=== PATIENT | female | born 1990 | race Caucasian/White ===

== ENCOUNTER 2019-08-20 12:20 | Outpatient (CLI) | payer BC, SELFPAY ==
--- NOTE | ~2019-08-20 | XR_ITS ---
EXAMINATION:XR cervical spine 4-5V DATE: 08/20/2019 12:41 INDICATION: Neck pain TECHNIQUE: AP, lateral, lateral swimmers and odontoid views of the cervical spine are provided. COMPARISON: None FINDINGS: There is straightening of the cervical spine which can be positional or due to muscular spa sm. The odontoid is intact. No fracture is identified. Vertebral body heights and disk spaces are nor mal. Prevertebral soft tissues are normal. IMPRESSION: 1. Cervical spine straightening which may be positional or due to muscular spasm. No acute abnormalit y. Reviewed, dictated and finalized at location A. NS PICKER IMPRESSION: 1. Cervical spine straightening which may be positional or due to muscular spas m. No acute abnormality.
== END 2019-08-20 12:21 | disposition home or self-care (01) ==
PROVIDERS: PCP Physician Assistant; Visit Provider Physician Assistant
DX: M54.2 Cervicalgia (principal)
CPT/HCPCS: 72050

== ENCOUNTER 2020-03-03 12:56 | Emergency (ER) | payer OTHER, SELFPAY ==
[2020-03-03 13:06] VITALS: BP 119/87; PULSE 82; RESP 16; TEMP 37.2; O2SAT 99
[2020-03-03 13:19] LABS: Basophils Percent Auto 0.5 % (0.2-1.2); Eosinophils Absolute Auto 0.1 K/mm3 (0-0.3); Eosinophils Percent Auto 1.5 % (0-4.4); Hematocrit 37.8 % (37.0-47.0); Hemoglobin 13.1 g/dL (12.0-15.0); Immature Granulocyte Absolute 0.02 K/mm3 (0.00-0.031); Immature Granulocyte Percent A 0.3 % (0-0.5); Lymphocytes Absolute Auto 2.23 K/mm3 (0.9-3.2); Mean Corpuscular HGB Conc 34.7 g/dl (32-36); Mean Corpuscular Hemoglobin 30.3 pg (26-34); Mean Corpuscular Volume 87.5 fl (80-100); Mean Platelet Volume 9.8 fl (7.4-10.4); Monocytes Absolute Auto 0.7 K/mm3 (0.1-0.6); Monocytes Percent Auto 8.2 % (2.6-8.5); Neutrophils Absolute Auto 4.9 K/mm3 (1.3-6.7); Neutrophils Percent Auto 61.5 % (45.5-73.1); Platelet Count Result 239 k/mm3 (150-375); Red Blood Count 4.32 M/mm3 (4.2-5.4); Red Cell Distribution Width 11.8 % (11.5-14.5)
[2020-03-03 13:52] LABS: Beta HCG Quantitative > 15000.00 mIU/ML
--- NOTE | 2020-03-03 13:55 | ED.PREGNANCY ---
HPI - General Chief complaint: BELL VALET Stated complaint: , bleeding Time Seen by Provider: 03/03/20 13:41 History of Present Illness HPI Narrative: 29-year-old female presents emergency department for vaginal spotting that she noticed today. Patient states he is about 7 weeks , last menstrual period January 15 or . She states she has not noticed this in the past before during this . She has not seen an [facility] physician just yet. She has appointment scheduled for March 19. No abdominal cramping. No nausea or vomiting. No chest pain or shortness of breath. Related Data Allergies Allergy/AdvReac Type Severity Reaction Status Date / Time No Known Allergies Allergy Verified 03/03/20 13:45 Review of Systems Review of Systems: Narrative: CONSTITUTIONAL: Denies fever, chills, or sweats. EYES: Denies visual changes, redness, or discharge. ENT: Denies rhinorrhea, congestion, sore throat, or otalgia. CARDIOVASCULAR: Denies chest pain, palpitations, or edema. RESPIRATORY: Denies cough or dyspnea. GASTROINTESTINAL: Denies abdominal pain, nausea, vomiting, or diarrhea. GENITOURINARY: Denies dysuria or hematuria. Patient reports vaginal spotting SKIN: Denies rash or itching. MUSCULOSKELETAL: Denies back pain, joint pain, or myalgia. NEUROLOGIC: Denies headache, numbness, dizziness, or weakness. PSYCHIATRIC: Denies anxiety or depression. [facility] Social History Social History Smoking status: Never smoker Second hand tobacco smoke exposure: No Alcohol intake: current Substance use: never Substance use type: marijuana Exam Narrative: Exam Narrative: GENERAL: Well-appearing, well-nourished, and in no acute distress. HEAD: Normocephalic, atraumatic. EYES: PERRLA and EOMI. ENT: Nares clear, no rhinorrhea or epistaxis. Mucous membranes moist. NECK: Supple. CHEST: Clear to auscultation. No respiratory distress. HEART: Regular rate and rhythm. No murmur heard. Normal peripheral pulses. : Dark blood noted in vaginal vault, no active bleeding. ABDOMEN: Soft, nontender, nondistended, normal active bowel sounds. EXTREMITIES: Normal range of motion. No edema. SKIN: Warm, dry, no rash. NEURO: No focal deficits. Alert and oriented x3. PSYCH: Normal mood and affect. Course Vital Signs Vital signs: Vital Signs Temperature 37.2 C 03/03/20 13:06 Pulse Rate 82 03/03/20 13:06 Respiratory Rate 16 03/03/20 13:06 Blood Pressure 119/87 03/03/20 13:06 Pulse Oximetry 99 03/03/20 13:06 Temperature 37.2 C 03/03/20 13:06 Pulse Rate 99 03/03/20 14:54 Respiratory Rate 16 03/03/20 13:06 Blood Pressure 112/75 03/03/20 14:54 Pulse Oximetry 99 03/03/20 13:06 Procedures Other Procedure Procedure 1: Other Procedure: Bedside ultrasound shows IUP with heart rate present. MDM - OB/Uterine Contractions MDM Narrative Medical decision making narrative: 1547 -at this time, I see no indication for a vaginitis, low suspicion for STI at this time. Patient states she has an appointment with her [facility] on March 19. Counseled patient to keep this appointment, and return to emergency department at anytime if she notes increased bleeding, discharge, or other concerns. Medical Records Attestation: I reviewed the patient's medical records. Lab Data Attestation: I reviewed the patient's lab results. Result diagrams: 03/03/20 13:10 03/03/20 13:10 Labs: Lab Results 03/03/20 03/03/20 03/03/20 Range/Units 13:10 13:10 13:10 WBC 8.0 (4.5-10.0) K/mm3 RBC 4.32 (4.2-5.4) M/mm3 Hgb 13.1 (12.0-15.0) g/dL Hct 37.8 (37.0-47.0) % MCV 87.5 (80-100) fl MCH 30.3 (26-34) pg MCHC 34.7 (32-36) g/dl RDW 11.8 (11.5-14.5) % Plt Count 239 (150-375) k/mm3 MPV 9.8 (7.4-10.4) fl Immature Gran % (Auto) 0.3 (0-0.5) % Neut % (Auto) 61.5 (45.5-73.1)
[2020-03-03 14:33] LABS: Anion Gap 8 mmol/L (8-16); Blood Urea Nitrogen 9 mg/dL (7-17); Calcium 9.1 mg/dL (8.4-10.2); Carbon Dioxide 23 mmol/L (22-30); Chloride 104 mmol/L (98-107); Estimated CRCL calculation 110 ml/min; Estimated Glomerular Filt Rate > 60; Glucose 147 mg/dL (65-105); Potassium 3.7 mmol/L (3.4-5.0); Sodium 135 mmol/L (137-145)
[2020-03-03 14:53] VITALS: BP 109/54; PULSE 86
[2020-03-03 14:54] VITALS: BP 109/61; BP 112/75; PULSE 99
== END 2020-03-03 16:05 | disposition home or self-care (01) ==
PROVIDERS: General Practice; Emergency Provider Emergency Medicine; PCP Physician Assistant
DX: O20.9 Hemorrhage in early pregnancy, unspecified (principal); Z3A.11 11 weeks gestation of pregnancy
CPT/HCPCS: 36415; 80048; 84702; 85025; 85461; 87070; 87491; 87591; 87808; 99284

== ENCOUNTER 2020-08-05 08:04 | Outpatient (CLI) | payer OTHER, SELFPAY ==
[2020-08-05 08:59] LABS: Glucose Fasting Gestational 81 mg/dL (>/=95)
[2020-08-05 10:37] LABS: Glucose 1 Hour Gest 164 mg/dL (>/=180)
[2020-08-05 11:35] LABS: Glucose 2 Hour Gest 143 mg/dL (>/= 155)
[2020-08-05 12:37] LABS: Glucose 3 Hour Gest 55 mg/dL (>/=140)
== END 2020-08-05 08:05 | disposition home or self-care (01) ==
PROVIDERS: PCP Physician Assistant; Visit Provider Obstetrics & Gynecology
DX: O99.810 Abnormal glucose complicating pregnancy (principal); Z3A.00 Weeks of gestation of pregnancy not specified
CPT/HCPCS: 36415; 82951; 82952

== ENCOUNTER 2020-10-12 20:22 | Observation (INO) | payer OTHER, SELFPAY ==
[2020-10-12 20:40] VITALS: BMI 27.3
--- NOTE | 2020-10-13 07:52 | OBADM ---
This patient, Estela Smith, admitted to the OB room Labor/Delivery/Recovery 105 for observation. Patient/family oriented to hospital policies and general routines including ID bracelet, bed and alarms, visiting hours, pain management, procedures, bathroom and other care routines, personal items, smoking policy, room service/diet, and visiting hours. Patient/Family are encouraged to report perceived risks to care and to ask questions if they do not understand what they are told or what they should do.
--- NOTE | 2020-10-13 07:53 | PC.NURSE ---
Addendum entered by Crescencio Stiles RN 10/13/20 07:56: TIME NOTE 10-12-20 at 2335 Original Note: Pt arrived having contractions. Pt had not cervical change after [address] Azevedo. Will discharge home with instuctions to return when contractions increase in intensity of if SROM. Pt advised and agreeable. Pt comfortable with returning home and returning when contractions intensity.
--- NOTE | 2020-10-16 08:43 | PM.OBTRLD ---
OB - Triage/Final Diagnosis Visit Information Comments/Additional reasons for admission: I have assessed the risk for this patient, Estela Smith, and determined that she would benefit from observation care. Final Diagnosis (1) , delivered: Code(s): O80 - Encounter for full-term uncomplicated delivery Status: Acute
== END 2020-10-12 23:35 | disposition home or self-care (01) ==
PROVIDERS: Admitting Provider Obstetrics & Gynecology; PCP Physician Assistant; Visit Provider Obstetrics & Gynecology
DX: O60.00 Preterm labor without delivery, unspecified trimester (principal); Z3A.00 Weeks of gestation of pregnancy not specified
CPT/HCPCS: G0378; G0379

== ENCOUNTER 2020-10-13 02:01 | Inpatient (IN) | payer OTHER, SELFPAY ==
[2020-10-13] VITALS (47 sets, daily range): BP systolic 96–193; BP diastolic 47–160; PULSE 65–132; RESP 16–18; TEMP 36.3–37.2; O2SAT 95–100; BMI 27.3
--- NOTE | 2020-10-13 02:01 | PC.NURSE ---
This patient, Estela Smith, was admitted to Labor/Delivery/Recovery 105 on 10/13/20 at 02:01. Plans for labor, pain management and were discussed with patient. Patient/family oriented to hospital policies and general routines including ID bracelet, bed and alarms, visiting hours, pain management, procedures, bathroom and other care routines, personal items, smoking policy, room service/diet and guest tray routines, infant security routines, and visiting hours. Patient/Family are encouraged to report perceived risks to care and to ask questions if they do not understand what they are told or what they should do. See OBIX for further documentation.
[2020-10-13] MEDS: LACTATED RINGERS 1,000 ML 125 ML IV CONT ×2 (02:10→02:55)
[2020-10-13 02:25] LABS: Basophils Absolute Auto 0.1 K/mm3 (0.0-0.1); Basophils Percent Auto 0.3 % (0.2-1.2); Eosinophils Absolute Auto 0.1 K/mm3 (0-0.3); Eosinophils Percent Auto 0.3 % (0-4.4); Hematocrit 34.2 % (37.0-47.0); Hemoglobin 11.4 g/dL (12.0-15.0); Immature Granulocyte Absolute 0.13 K/mm3 (0.00-0.031); Immature Granulocyte Percent A 0.7 % (0-0.5); Lymphocytes Absolute Auto 2.62 K/mm3 (0.9-3.2); Lymphocytes Percent Auto 13.6 % (18.3-44.2); Mean Corpuscular HGB Conc 33.3 g/dl (32-36); Mean Corpuscular Hemoglobin 27.1 pg (26-34); Mean Corpuscular Volume 81.4 fl (80-100); Mean Platelet Volume 10.1 fl (7.4-10.4); Monocytes Absolute Auto 1.3 K/mm3 (0.1-0.6); Monocytes Percent Auto 6.9 % (2.6-8.5); Neutrophils Percent Auto 78.2 % (45.5-73.1); Platelet Count Result 212 k/mm3 (150-375); Red Cell Distribution Width 13.8 % (11.5-14.5); White Blood Count 19.2 K/mm3 (4.5-10.0)
--- NOTE | 2020-10-13 02:32 | P.PNAN_ITS ---
Anes - Eval Pre Procedure Procedure: labor epidural Date/Time: 10/13/20 02:32 Surgeon: suzie Preop Diagnosis: Abd pain with contractions Pre Op Diagnosis: CTX Patient Data Age: 30 Gender: F Height: Weight: Allergies Allergy/AdvReac Type Severity Reaction Status Date / Time No Known Allergies Allergy Verified 06/10/20 09:08 Home Medications Medication Instructions Recorded Confirmed Type PNV cmb#95-ferrous fumarate-FA 1 tablet PO DAILY 09/23/20 09/23/20 History [] ferrous sulfate [Iron (ferrous 325 mg PO DAILY 09/23/20 09/23/20 History sulfate)] omeprazole 20 mg PO DAILY 09/23/20 09/23/20 History Laboratory Tests 10/13/20 10/13/20 02:18 02:18 WBC 19.2 K/mm3 H K/mm3 (4.5-10.0) RBC 4.20 M/mm3 M/mm3 (4.2-5.4) Hgb 11.4 g/dL L g/dL (12.0-15.0) Hct 34.2 % L % (37.0-47.0) MCV 81.4 fl fl (80-100) MCH 27.1 pg pg (26-34) MCHC 33.3 g/dl g/dl (32-36) RDW 13.8 % % (11.5-14.5) Plt Count 212 k/mm3 k/mm3 (150-375) MPV 10.1 fl fl (7.4-10.4) Immature Gran % (Auto) 0.7 % H % (0-0.5) Neut % (Auto) 78.2 % H % (45.5-73.1) Lymph % (Auto) 13.6 % L % (18.3-44.2) [place] % (Auto) 6.9 % % (2.6-8.5) Eos % (Auto) 0.3 % % (0-4.4) Baso % (Auto) 0.3 % % (0.2-1.2) Lymph # (Auto) 2.62 K/mm3 K/mm3 (0.9-3.2) [place] # (Auto) 1.3 K/mm3 H K/mm3 (0.1-0.6) Eos # (Auto) 0.1 K/mm3 K/mm3 (0-0.3) Baso # (Auto) 0.1 K/mm3 K/mm3 (0.0-0.1) Abs Immat Gran (auto) 0.13 K/mm3 H K/mm3 (0.00-0.031) Absolute Neuts (auto) 15.0 K/mm3 H K/mm3 (1.3-6.7) Absolute Nucleated RBC 0.0 K/mm3 K/mm3 (0.0-0.012) Nucleated RBC % 0.0 % % (0.0-0.2) RPR Pending Patient hx anesthesia problems: none Family hx anesthesia problems: none [facility] Past Medical History Medical History Chronic pain Family History Family History Mother Patient's mother is in good health Father Patient's father is in good health Sibling Patient's brother is in good health Social History Social History Smoking status: Never smoker Second hand tobacco smoke exposure: No Alcohol intake: current Substance use: never Substance use type: marijuana Gender identity (if verbalized by the patient): Female Spiritual care concerns: No Exam Day of Procedure 10/13/20 02:32
--- NOTE | 2020-10-13 02:35 | P.PNAN_ITS ---
Anes - Eval Pre Procedure Date/Time: 10/13/20 02:35 Pre Op Diagnosis: CTX Patient Data Age: 30 Gender: F Height: Weight: Last Vital Signs Pulse 98 10/13/20 02:34 BP 123/79 10/13/20 02:34 Pulse Ox 100 10/13/20 02:34 Allergies Allergy/AdvReac Type Severity Reaction Status Date / Time No Known Allergies Allergy Verified 06/10/20 09:08 Home Medications Medication Instructions Recorded Confirmed Type PNV cmb#95-ferrous fumarate-FA 1 tablet PO DAILY 09/23/20 09/23/20 History [] ferrous sulfate [Iron (ferrous 325 mg PO DAILY 09/23/20 09/23/20 History sulfate)] omeprazole 20 mg PO DAILY 09/23/20 09/23/20 History Laboratory Tests 10/13/20 10/13/20 02:18 02:18 WBC 19.2 K/mm3 H K/mm3 (4.5-10.0) RBC 4.20 M/mm3 M/mm3 (4.2-5.4) Hgb 11.4 g/dL L g/dL (12.0-15.0) Hct 34.2 % L % (37.0-47.0) MCV 81.4 fl fl (80-100) MCH 27.1 pg pg (26-34) MCHC 33.3 g/dl g/dl (32-36) RDW 13.8 % % (11.5-14.5) Plt Count 212 k/mm3 k/mm3 (150-375) MPV 10.1 fl fl (7.4-10.4) Immature Gran % (Auto) 0.7 % H % (0-0.5) Neut % (Auto) 78.2 % H % (45.5-73.1) Lymph % (Auto) 13.6 % L % (18.3-44.2) [place] % (Auto) 6.9 % % (2.6-8.5) Eos % (Auto) 0.3 % % (0-4.4) Baso % (Auto) 0.3 % % (0.2-1.2) Lymph # (Auto) 2.62 K/mm3 K/mm3 (0.9-3.2) [place] # (Auto) 1.3 K/mm3 H K/mm3 (0.1-0.6) Eos # (Auto) 0.1 K/mm3 K/mm3 (0-0.3) Baso # (Auto) 0.1 K/mm3 K/mm3 (0.0-0.1) Abs Immat Gran (auto) 0.13 K/mm3 H K/mm3 (0.00-0.031) Absolute Neuts (auto) 15.0 K/mm3 H K/mm3 (1.3-6.7) Absolute Nucleated RBC 0.0 K/mm3 K/mm3 (0.0-0.012) Nucleated RBC % 0.0 % % (0.0-0.2) RPR Pending Patient hx anesthesia problems: none Family hx anesthesia problems: none PMFSH Past Medical History Medical History Chronic pain Family History Family History Mother Patient's mother is in good health Father Patient's father is in good health Sibling Patient's brother is in good health Social History Social History Smoking status: Never smoker Second hand tobacco smoke exposure: No Alcohol intake: current Substance use: never Substance use type: marijuana Gender identity (if verbalized by the patient): Female Spiritual care concerns: No Exam Day of Procedure 10/13/20 02:35 Patient weight: normal Neurological: alert and oriented
--- NOTE | 2020-10-13 03:08 | WPDOBADMIT ---
Obstetrics - Admit Note Admission Note: record reviewed. No pertinent additions to the history and/or any subsequent changes in the physical findings that are not consistent with the expected course of the were found. Additions to the history and/or subsequent changes in the physical findings follow. AROM clear at [id number] 8//-1 FHT reassuring with accels anticipate
[2020-10-13] MEDS: OXYTOCIN 30 UNITS/NS 500 ML 30 UNITS/500 ML BAG 999 UNITS IV CONT (04:28)
--- NOTE | 2020-10-13 04:39 | PM.OBPRVD ---
OB - Delivery Note Procedure Delivery date: 10/13/20 Procedure: Induction method: none Delivery augmentation: rupture of membranes Delivery monitor: external FHT and external uterine Route of delivery: Laceration Description: None Specimen: Yes (cord blood) Quantitative Blood Loss (ml): 400 Anesthesia type: Epidural Disposition: floor Complications: none Narrative: With adequate expulsive efforts by the mother, the baby's head was delivered OA. The baby's anterior shoulder was delivered under the pubic symphysis without difficulty. The posterior shoulder and the rest of the baby delivered without difficulty. The was placed on the mothers chest and suctioned and stimulated. The cord was clamped and cut after 30 seconds. Mother and baby both stable. Baby Date of : 10/13/20 Weeks of gestation at delivery: 38 Infant gender: Male Weight (pounds): 9 Weight (ounces): 3 presentation: vertex position: Right Occiput Anterior Placenta delivery description: Spontaneous cord vessel description: 3 Vessels score one minute: 9 score five minutes: 9
[2020-10-13] MEDS: OXYTOCIN 30 UNITS/NS 500 ML 30 UNITS/500 ML BAG 125 UNITS IV CONT (05:00)
--- NOTE | 2020-10-13 07:26 | PC.NURSE ---
Patient transferred to post room #280 via [id number]. Support person present. Oriented to unit, room, information board, rooming in, admission packet and security measures. Patient verbalizes understanding.
--- NOTE | 2020-10-13 08:45 | PC.NURSE ---
Consulted with patient, mother reports infant eagerly fed for first feeding with slight tenderness. Reviewed infant feeding cues, frequencies, duration of feedings, feeding elimination flow sheet, and signs of adequate intake. Demonstrated stimulation techniques to wake infant for feeding. Assisted with infant to breast. Reviewed positioning/alignment in cross cradle, holding breast in U hold and guided asymmetrical latch on. was able to latch correctly with first attempt. Infant nursed eagerly, with steady draws and frequent swallowing noted. Reviewed signs of a correct latch, effective nursing and suck swallow ratio. was able to maintain latch without discomfort to mother. Nipple care reviewed. slipped to shallow latch while feeding. Demonstrated how to adjust latch more deeply while feeding ,mother quickly reports she can feel infant is latched more deeply and has minimal tenderness. Suggested to stimulate infant while feeding to keep infant awake and nursing effectively for increased stimulation and increased intake. Instructed mother to call out for RN assistance if she is unable to latch infant for feeding or she has discomfort with nursing. Instructed mother to call out for RN assistance if she is unable to latch infant for feeding or she has discomfort with nursing. Instructed feeding should be initiated three hours from start of last feeding or if feeding cues are noted before. Mother voiced understanding of information shared.
[2020-10-13] MEDS: MULTIVIT/MIN/PREN/FOL AC/IRON TABLET 1 TAB PO (09:29)
[2020-10-13] MEDS: IBUPROFEN 600 MG TABLET PO ×2 (09:29→17:24)
[2020-10-13 12:00] LABS: Rapid Plasma Reagin Non-Reactive (NonReactive)
--- NOTE | 2020-10-13 12:36 | PCCCNOTE ---
Received referral for marijuana use during . Met with pt. and her best friend, Jennifer at bedside. Pt. confirms same; indicating that she's used marijuana in the past due to fibromyalgia and during for nausea. No urine drug screen ordered. Baby urine drug screen is pending. Pt. indicates having no previous history with DCFS. She states living with her grandparents and her 10 year old. Father of baby is not involved. Pt. states no concerns regarding this situation. She states having much support and all needed items to care for baby at discharge. She is current with [facility]. Nursing indicates no other concerns. No indication at this time to make a DCFS report regarding situation. Will follow for babies urine drug screen results. Offered pt. additional resources and she accepted same.
--- NOTE | 2020-10-13 14:30 | PC.NURSE ---
RN requested consult with pt., mother is not calling out for BS as requested, tracking feedings and allowing to have short 5 minute feedings. Consult with pt., upon entering infant at breast with deep latch, nursing eagerly with long rhythmical draws with swallowing noted. Suggested to stimulate infant while feeding to keep infant awake and nursing effectively for increased stimulation and increased intake. Instructed mother to call out for RN assistance if she is unable to latch infant for feeding or she has discomfort with nursing. Reviewed should nurse approximately 15 minutes per feeding needing constant stimulation to keep nursing, it is normal for newborns to be at breast 30 minutes for 15 minutes of nursing. will be sleepy at first and more awake and eager to feed within a few days.
[2020-10-14 03:50] VITALS: BP 106/59; PULSE 81; RESP 18; TEMP 36.6; O2SAT 100
[2020-10-14] MEDS: IBUPROFEN 600 MG TABLET PO (04:39)
[2020-10-14 05:41] LABS: Hematocrit 31.1 % (37.0-47.0)
--- NOTE | 2020-10-14 07:41 | WPDANLDPN2 ---
Anes-Prog Note L&D Date/Time: 10/14/20 07:41 Comfortable throughout: labor and delivery Neuraxial method: epidural Epidural/Spinal procedure site: clean & non-tender Neuro status: Neuro function grossly intact. Cardiovascular status: normal Respiratory status: normal Airway patency: baseline Mental status: baseline Post-Op hydration status: normal Vital Signs: Last Vital Signs Temp 36.6 C 10/14/20 03:50 Pulse 81 10/14/20 03:50 Resp 18 10/14/20 03:50 BP 106/59 L 10/14/20 03:50 Pulse Ox 100 10/14/20 03:50 Pain score (VAS): 3 Post-procedural complaints: none Patient feedback: Patient satisfied with anesthetic care.
[2020-10-14 07:55] VITALS: BP 115/74; PULSE 76; RESP 16; TEMP 37.1; O2SAT 99
--- NOTE | 2020-10-14 08:05 | PM.OBPNVD ---
OB - PN: Subj Subjective Date/time seen: 10/14/20 08:05 Patient comments: no complaints baby status: doing well OB - PN: Obj Data Labs CBC & Chem 7: 10/14/20 04:20 Labs: Laboratory Results - last 24 hr 10/13/20 10/14/20 02:18 04:20 Hgb 10.0 L Hct 31.1 L RPR Non-reactive OB - PN A/P Plan day: 1 Plan: routine care and discharge home (RTC 4 weeks) Time Spent With Patient Time: Total time spent is greater than 50% in coordination of care (as documented) at patient's floor/unit and/or counseling patient: Time with patient: less than 15 minutes Review of Systems Review of Systems: All systems reviewed & are unremarkable except as noted in HPI and below Exam Narrative: Exam Narrative: Fundus firm and vaginal flow controlled. No lower ext redness, warmth, or edema. Negative homans. Const: General: comfortable Chest: Breast/axilla inspection: normal inspection of the breasts Resp: Effort & Inspection: normal respiratory effort Cardio: Rate: regular rate GI: GI Palp: Yes Soft to palpation Psych: Appearance: grossly normal Affect: normal affect Attitude: cooperative Thought content: Yes Normal thought content present Judgement: Good judgement present (Psych)
--- NOTE | 2020-10-14 08:11 | PM.OBDSVD ---
OB - DS: Summary Time Spent with Patient Time attestation: Total time spent providing and/or coordinating discharge services: DS: Data Data Completed and Pending Labs on day of discharge: Labs from last 24 hours 10/14/20 10/13/20 04:20 02:18 Hgb 10.0 L Hct 31.1 L RPR Non-reactive Discharge Plan Discharge Attending physician on discharge: Emily Azevedo Consulting providers: Lisa Thomason Discharging Clinician: Lisa Thomason Patient Disposition: Home, Self-Care Activity: pelvic rest Diet: as tolerated Discharge Instructions: Education: Mom and Baby Guide and Preeclampsia Handout Given to: Mother Follow-Up: Call your delivering provider's office for an appointment to be seen in: 6 Weeks Mom and baby should come to the [facility] for the follow-up appointment. Appointment Date/Time: October 15, 2020 at 8:00 am What to expect at your follow-up visit: Physical Assessment Call [phone] if you are unable to keep your appointment time. BREAST CARE: * Wear a snug supportive bra. * For engorgement discomfort: Breast Feeding: * Apply warm moist washcloths * Express milk as needed to relieve engorgement * Wear loose clothing * For sore nipples: * Identify correct latch-on * Apply warm moist washcloths before and after nursing * Air dry nipples after nursing * May apply Lansinoh cream to nipples EPISIOTOMY/PERINEAL CARE: * Until bleeding stops, use your sudha bottle after urinating * Change your pad frequently throughout the day * You may take sitz baths several times a day (fill your bathtub with warm water and soak for 20 minutes.) Do NOT bathe in the water * No tub baths until seen by your physician - You may shower ACTIVITY: * Rest as much as possible. * Do not exercise or lift anything heavier than your baby (such as laundry or other children.) * Avoid stairs or driving as much as possible. * Do not put anything into the vagina. No douching, tampons, or sexual activity until seen by physician. NOTIFY PHYSICIAN IF YOU HAVE ANY QUESTIONS OR IF ANY OF THE FOLLOWING SYMPTOMS OCCUR: * If your perineum becomes red, swollen, or more painful than what you have experienced in the hospital. * If your vaginal bleeding becomes foul smelling. * If your vaginal bleeding becomes more heavy than a period or if your bleeding changes from pink to bright red. However, you may pass an occasional walnut-sized clot once or twice for the first week . * If you experience a sharp, shooting pain in you calves. * If you discover a hard, reddened area on your breast or if you experience flu-like symptoms. DIET: * Eat regular, well-balanced meals. * Drink plenty of fluids daily. If , drink to thirst. Stand Alone Forms: General Discharge Information Follow-up/Referrals: Emily Azevedo MD [Physician] - Discharge Medications: Continued ferrous sulfate [Iron (ferrous sulfate)] 325 mg (65 mg iron) Tablet 325 mg PO DAILY RF: 0 omeprazole 20 mg Tablet,Delayed Release (Dr/Ec) 20 mg PO DAILY RF: 0 PNV cmb#95-ferrous fumarate-FA [] 28 mg iron- 800 mcg Tablet 1 tablet PO DAILY RF: 0 Date of admission: 10/13/20 02:01 Primary Care Provider: Joesph Nuno Admitting Provider: Emily Azevedo Attending physician on admission: Emily Azevedo Condition: Stable
--- NOTE | 2020-10-14 09:40 | PC.NURSE ---
Patient viewed the discharge video Mother & Baby Care, The First Two Weeks . Patient was given the opportunity and encouraged to ask questions. Patient verbalized understanding of information shared and has been given the mother/baby guide for home reference.
[2020-10-14] MEDS: MULTIVIT/MIN/PREN/FOL AC/IRON TABLET 1 TAB PO (09:41)
[2020-10-14] MEDS: TETANUS,DIPHTHERIA,AC PERTUSSIS ADULT (0.5 ML) BOOSTRIX IM (09:41)
[2020-10-14] MEDS: ACETAMINOPHEN 325 MG TABLET 650 MG PO (09:44)
[2020-10-15 08:16] VITALS: BP 110/63; PULSE 78; RESP 20; TEMP 36.8; O2SAT 100
--- NOTE | 2020-11-05 07:46 | PM.DS ---
DS: Admitting Diagnosis Admitting Diagnosis Admitting Diagnosis: term DS: Discharge Diagnosis Discharge Diagnosis (1) , delivered: Code(s): O80 - Encounter for full-term uncomplicated delivery Status: Acute DS: Summary Hospital Course Hospital Course: course was uncomplicated. Time Spent with Patient Time attestation: Total time spent providing and/or coordinating discharge services: Exam Narrative: Exam Narrative: NAD abdomen soft, appropriately tender Ext non tender, 1+ edema Discharge Plan Discharge Attending physician on discharge: Emily Azevedo Consulting providers: Lisa Thomason Discharging Clinician: Lisa Thomason Patient Disposition: Home, Self-Care Activity: pelvic rest Diet: as tolerated Discharge Instructions: Education: Mom and Baby Guide and Preeclampsia Handout Given to: Mother Follow-Up: Call your delivering provider's office for an appointment to be seen in: 6 Weeks Mom and baby should come to the [facility] for the follow-up appointment. Appointment Date/Time: October 15, 2020 at 8:00 am What to expect at your follow-up visit: Physical Assessment Call [phone] if you are unable to keep your appointment time. BREAST CARE: * Wear a snug supportive bra. * For engorgement discomfort: Breast Feeding: * Apply warm moist washcloths * Express milk as needed to relieve engorgement * Wear loose clothing * For sore nipples: * Identify correct latch-on * Apply warm moist washcloths before and after nursing * Air dry nipples after nursing * May apply Lansinoh cream to nipples EPISIOTOMY/PERINEAL CARE: * Until bleeding stops, use your sudha bottle after urinating * Change your pad frequently throughout the day * You may take sitz baths several times a day (fill your bathtub with warm water and soak for 20 minutes.) Do NOT bathe in the water * No tub baths until seen by your physician - You may shower ACTIVITY: * Rest as much as possible. * Do not exercise or lift anything heavier than your baby (such as laundry or other children.) * Avoid stairs or driving as much as possible. * Do not put anything into the vagina. No douching, tampons, or sexual activity until seen by physician. NOTIFY PHYSICIAN IF YOU HAVE ANY QUESTIONS OR IF ANY OF THE FOLLOWING SYMPTOMS OCCUR: * If your perineum becomes red, swollen, or more painful than what you have experienced in the hospital. * If your vaginal bleeding becomes foul smelling. * If your vaginal bleeding becomes more heavy than a period or if your bleeding changes from pink to bright red. However, you may pass an occasional walnut-sized clot once or twice for the first week . * If you experience a sharp, shooting pain in you calves. * If you discover a hard, reddened area on your breast or if you experience flu-like symptoms. DIET: * Eat regular, well-balanced meals. * Drink plenty of fluids daily. If , drink to thirst. Stand Alone Forms: General Discharge Information Follow-up/Referrals: Emily Azevedo MD [Physician] - Discharge Medications: Continued ferrous sulfate [Iron (ferrous sulfate)] 325 mg (65 mg iron) Tablet 325 mg PO DAILY RF: 0 omeprazole 20 mg Tablet,Delayed Release (Dr/Ec) 20 mg PO DAILY RF: 0 PNV cmb#95-ferrous fumarate-FA [] 28 mg iron- 800 mcg Tablet 1 tablet PO DAILY RF: 0 Date of admission: 10/13/20 02:01 Primary Care Provider: Joesph Nuno Admitting Provider: Emily Azevedo Attending physician on admission: Emily Azevedo Condition: Stable
== END 2020-10-14 11:40 | disposition home or self-care (01) | DRG 560 ==
LOC: ANHLDR 02:22 → ANHOB2 10-14 08:13 → ANHLDR 10-15 12:31 → ANHOB2 10-15 12:31
PROVIDERS: Admitting Provider Obstetrics & Gynecology; PCP Physician Assistant; Visit Provider Obstetrics & Gynecology
DX: O80 Encounter for full-term uncomplicated delivery (principal); Z3A.38 38 weeks gestation of pregnancy; Z37.0 Single live birth
CPT/HCPCS: 36415; 85014; 85018; 85025; 86592; 86850; 86900; 86901; 90715; A9270; J2590; J2795; J7120

== ENCOUNTER 2024-06-07 11:38 | Emergency (ER) | payer OTHER, SELFPAY ==
--- NOTE | ~2024-06-07 | XR_ITS ---
EXAMINATION: XR chest 2V Exam Date/Time: 06/07/2024 14:09 CATCHER HELPER HISTORY: Cough,BODY ACHES, and fever X 4 DAYS Comparison: None. RESULT: Lines, tubes, and devices: None. Lungs and pleura: Segmental airspace disease in the superior segment, left lower lobe. Cardiomediastinal silhouette: Stable. Other: No acute osseous or upper abdominal finding. IMPRESSION: Findings suspicious for lower lobe pneumonia. Reviewed, dictated and finalized at location K. HER HELPER
[2024-06-07 11:52] VITALS: BP 108/70; PULSE 107; RESP 14; TEMP 37.2; O2SAT 100
[2024-06-07 12:59] LABS: Strep Group A RT-PCR NOT DETECTED (Negative)
[2024-06-07 13:11] LABS: Influenza A QL RT-PCR Negative (Negative); Influenza B QL RT-PCR Negative (Negative); RSV RNA, RT-PCR Negative (Negative); SARS-CoV-2 RNA PCR Negative (Negative)
--- NOTE | 2024-06-07 14:40 | ED_ITS ---
HPI - URI/Sore Throat General Chief Complaint: Upper Respiratory Infection Stated Complaint: body aches, cold sx's Time Seen by Provider: 06/07/24 13:17 Source: patient Mode of arrival: ambulatory Limitations: no limitations History of Present Illness HPI Narrative: This is a 33-year-old female, with no significant past medical history, presents to the emergency department complaining of cough, body aches and fevers for the last week. She rates her pain 8/10. This is accompanied by cough productive of nonbloody sputum, nasal congestion and sore throat. The patient states despite taking Tylenol and ibuprofen, her symptoms having continued. She states she has frequent measured temperatures of 102 at home. Related Data Allergies Allergy/AdvReac Type Severity Reaction Status Date / Time No Known Allergies Allergy Verified 02/12/24 07:40 Review of Systems Review of Systems: last menstrual period 2 weeks ago All systems reviewed & are unremarkable except as noted in HPI and below PMFSH Past Medical History Medical History Chronic pain Family History Family History Mother Patient's mother is in good health Father Patient's father is in good health Sibling Patient's brother is in good health Social History Social History Smoking status: Never smoker Second hand tobacco smoke exposure: No Alcohol intake: current Substance use: never Substance use type: marijuana Lack of Transportation: No Lack of Food: Never True Current Housing: I Have Housing Concerned About Future Housing: No Difficulty Paying Gas/Electric Bills: No Difficulty Paying for Meds: No Currently Unemployed: No Education: Trade/Vocational Certificate Difficulty w/ Childcare or Family Care: YES Gender identity (if verbalized by the patient): Female Spiritual care concerns: No Exam 2 Narrative: GENERAL: Well-developed, well-nourished, and in no acute distress. HEAD: Normocephalic, atraumatic. EYES: PERRLA and EOMI. ENT: Nares clear, no rhinorrhea or epistaxis. Mucous membranes moist. Oropharynx without tonsillar hypertrophy exudate or other lesions. CHEST: Clear to auscultation. No respiratory distress. No wheezes rales or rhonchi HEART: Regular rate and rhythm. No murmur heard. Normal peripheral pulses. ABDOMEN: Soft, nontender, nondistended, normal active bowel sounds. EXTREMITIES: Normal range of motion. No edema. SKIN: Warm, dry, no rash. NEURO: Alert and oriented x3. No focal deficit. Moving all 4 limbs spontaneously PSYCH: Normal mood and affect. Course Course Emergency Course: 14:40 - The patient tested negative for COVID, influenza, RSV and strep. Chest x-ray however shows changes consistent with left lower lobe pneumonia. Will discharge with azithromycin, Sudafed and recommendation for continued use of Tylenol/ ibuprofen as well as primary care follow-up. I discussed the findings and recommendations with the patient. Discussed return and emergency precautions including signs/symptoms of ACS and respiratory distress. The patient voiced understanding and agreement with the plan. All questions answered to her satisfaction. Vital Signs Vital signs: Vital Signs Temperature 99.0 F 06/07/24 11:52 Pulse Rate 107 H 06/07/24 11:52 Respiratory Rate 14 06/07/24 11:52 Blood Pressure 108/70 06/07/24 11:52 Pulse Oximetry 100 06/07/24 11:52 Oxygen Delivery Room Air 06/07/24 11:52 Temperature 99.0 F 06/07/24 11:52 Pulse Rate 107 H 06/07/24 11:52 Respiratory Rate 14 06/07/24 11:52 Blood Pressure 108/70 06/07/24 11:52 Pulse Oximetry 100 06/07/24 11:52 Oxygen Delivery Room Air 06/07/24 12:30 MDM - URI/Sore Throat MDM Narrative Medical decision making narrative: plan: Labs, pain control, imaging, reassess Differential Diagnosis Differential diagnosis: Likely upper respiratory infection, viral infection, influenza and other ( COVID, RSV, viral pharyngitis, strep pharyngitis, pneumonia, other) Lab Data Labs: Lab Results 06/07/24 Range/Units 12:29 Influenza A (RT-PCR) Negative (Negative) Influenza B (RT-PCR) Negative (Negative) RSV (RT-PCR) Negative (Negative) SARS-CoV-2 RNA (RT-PCR) Negative (Negative) Group A Strep (PCR) Not detected (Negative) Discharge Plan Discharge Clinical Impression: Pneumonia, Myalgia, Tachycardia Patient Disposition: Home, Self-Care Condition: Stable Instructions: Antibiotic Form, Community Acquired Pneumonia (ED) Additional Instructions: You were seen in the emergency department. A chest x-ray showed changes consistent with a pneumonia. I recommend a course of antibiotics and follow up with your primary care doctor. If you develop difficulty breathing, loss of consciousness, or if you have other emergent concerns for life, limb, or eyesight, return to the emergency department. Patient Language: [place] Prescriptions: New azithromycin 250 mg tablet See Rx Instructions .ROUTE .COMPLEX Qty: 6 0RF Rx Instructions: For 250 mg dose pack: take 500 mg today (day 1), then 250 mg for 4 days (days 2-5) pseudoephedrine HCl 60 mg tablet 60 mg PO Q4-6H PRN (Reason: nasal congestion) Qty: 12 0RF Rx Instructions: DNExceed 4 doses/24h No Action tramadol 50 mg tablet 50 mg PO TID PRN (Reason: pain) Qty: 90 0RF Follow-up/Referrals: Grayson Castellon DO [Primary Care Provider] - 2 Weeks Time of Disposition: 14:42
== END 2024-06-07 15:00 | disposition home or self-care (01) ==
PROVIDERS: Emergency Medicine; Emergency Provider Preventive Medicine Aerospace Medicine; PCP Internal Medicine
DX: J18.9 Pneumonia, unspecified organism (principal); M79.10 Myalgia, unspecified site; R00.0 Tachycardia, unspecified; Z20.822 Contact with and (suspected) exposure to COVID-19
CPT/HCPCS: 71046; 87637; 87651; 99283

== ENCOUNTER 2024-11-12 16:39 | Outpatient (CLI) | payer OTHER, SELFPAY ==
--- NOTE | ~2024-11-12 | US_ITS ---
EXAMINATION: US thyroid DATE: 11/12/2024 17:06 INDICATION: Iodine deficiency related diffuse (endemic) goiter TECHNIQUE: Multiple ultrasound images of the thyroid were obtained. COMPARISON: None. FINDINGS: The right thyroid lobe measures 5.5 x 2.2 x 3.2 cm. Within the right lobe of the thyroid gland is a 5.6 x 3.4 x 4.0 mm nodule: Composition -solid or almost completely solid (2) Echogenicity -hyperechoic or isoechoic (1) Shape - wider than tall Margin -ill-defined. Echogenic foci -macrocalcifications = TR 4, moderately suspicious. Greater than or equal to 1 cm, follow-up. Greater than or equal to 1.5 cm, FNA The left thyroid lobe measures 3.8 x 0.8 x 1.2 cm. The isthmus measures 0.3cm in anterior to posterior dimension. There is otherwise normal echotexture and echogenicity throughout the remainder of the thyroid gland. No additional discrete nodules identified. The right lobe of the thyroid gland is hypervascular when compared to the left. IMPRESSION: TR4 nodule within the right lobe of the thyroid gland measuring 5.6 mm in greatest dimension. This nodule is moderately suspicious, but does not meet size criteria for FNA or follow-up. While follow-up is not recommended, it may be performed. Reviewed, dictated and finalized at location A. IMPRESSION: TR4 nodule within the right lobe of the thyroid gland measuring 5.6 mm in great est dimension. This nodule is moderately suspicious, but does not meet size criteria for FNA o r follow-up. While follow-up is not recommended, it may be performed.
--- OUTSIDE RECORDS SUMMARY | 2024-11-12 16:43 | XMS_ITS | Clinical Summary ---
Author Organization [facility] Address [address] [place] [address] Care Team Providers Care Bridge Leverman Name Role Phone Joesph Nuno PA-C Primary Care Provide r Source Comments [facility],non-owned Affiliates and Associated Physician Practices is amultiple site organization consisting of ambulatory clinics and hospital sitesin [place], [place], [place] and [place]. This disclosure is being madepursuant to the Care Everywhere program and may not contain all information available regarding this patient. Last updated 18.[facility] Allergies No known active allergies Medications * Be aware that medications may not be up to date on this document. Alwaysverify current medications with the patient. traMADol (ULTRAM) 50 MG tablet Take 50 mg by mouth every 6 hours as needed for Pain Active busPIRone (BUSPAR) 30 MG tablet Take 30 mg by mouth once daily Active baclofen (LIORESAL) 20 MG tablet Take 20 mg by mouth 2 times daily May cause drowsiness. 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/20/2015 Endometriosis 09/20/2015 Pain in joint involving right pelvic region and thigh 09/20/2015 Dysmenorrhea 09/20/2015 Chronic pelvic pain in female 09/20/2015 Social History Tobacco Use Types Packs/Day Years Used Date Smoking Tobacco: Some Days Cigarettes 0.5 6 Smokeless Tobacco: Never Tobacco Cessation:Ready to Q uit: Yes Alcohol Use Standard Drinks/Week Comments No 7.5 (1 standard drink = 0.6 oz p ure alcohol) socially Comments No Sex and Gender Information Value Date Recorded Sex Assigned at Not on file 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 Gender Identity Not on file Sexual Orientation Not on file Last Filed Vital Signs Vital Sign Reading Time Taken Comments Blood Pressure 102/64 03/05/2017 8:52 AM CDT Pulse 59 01/15/2017 1:46 AM CDT Temperature 36.7 C (98.1 F) 01/14/2017 11:06 PM CDT Respiratory Rate 10 01/15/2017 1:46 AM CDT Oxygen Saturation 99% 01/15/2017 1:46 AM CDT Inhaled Oxygen Concentration - - Weight 48.2 kg (106 lb 3.2 oz) 03/05/2017 8:52 A M CDT Height 157.5 cm (5' 2 ) 03/05/2017 8:52 AM CDT Body Mass Index 19.42 03/05/2017 8:52 AM CDT Plan of Treatment Health Maintenance Due Date Last Done Comments HIV SCREENING 2005 HEPATITIS C SCREENING 08/25/2008 DTAP/TDAP/TD VACCINES (1 - Tdap) 2009 HEPATITIS B VACCINE (1 of 3 - 19+ 3-dose series) 2009 COVID-19 VACCINE (1 - 2023-2 5 season) 2024 DEPRESSION SCREENING 07/09/2024 INFLUENZA VACCINE (Season Ended) 2025 ZOSTER VACCINE (1 of 2) 2040 HIB VACCINE Aged Out No longer eligi ble based on patient's age to complete this topic HPV VACCINE Aged Out No longer eligi ble based on patient's age to complete this topic MENINGOCOCCAL (Group B) VACC INE SHARED DECISION-MAKING Aged Out No longer eligibl e based on patient's age to complete this topic MENINGOCOCCAL GROUPS A/C/Y/W VACCINE Aged Out No longer eligible b ased on patient's age to complete this topic PNEUMOCOCCAL VACCINE Aged Out No long er eligible based on patient's age to complete this topic Insurance [facility] Care Teams Bridge Leverman Relationship Specialty Start Date End Date Joesph Nuno PA-C [id number] [place] [address] PCP - General Physician Investment Accounting Clerk 09/09/15
--- OUTSIDE RECORDS SUMMARY | 2024-11-12 16:43 | XMS_ITS | CONTINUITY OF CARE DOCUMENT ---
Author Name jimmyverajimmyvera Address Unknown Organization [facility] [address] Address [address] [place] [address] Phone [phone] Care Team Providers Care Napper Tender Name Role Phone Mukesh SMALL, Dayron Unavailable [phone] EVA OTOOLE MD Unavailable PROBLEMS Condition Status Date Provider Notes SYNCOPE VASODEPRESSIVE RESPONSEON TILT TABLE active 20 06/10/22 Dayron Mayorga MD ENCOUNTERS Date Type Provider Location Encounter Diag nosis - In-person encounter Office Visit Dayron Mayorga MD [facility] SYNCOPE VASODEPRESSI VE RESPONSEON TILT TABLE - In-person encounter Office Visit Dayron Mayorga MD [facility] - In-person encounter Office Visit Dayron Mayorga MD [facility] VITAL SIGNS Date Observation Value Provider blood pressure, diastolic 72 mm[Hg] Hernando Hrisch'Toni blood pressure, systolic 113 mm[Hg] Tari Hirsch'Toni pulse rate 85 /min Yesenia O'Toni oxygen saturation, oximetry 98 % Yesenia O'Toni respiratory rate E&M 18 /min Yesenia O'Toni weight E&M 101 [lb_av] Yesenia O'Toni blood pressure, diastolic 76 mm[Hg] Ly seph Manacop blood pressure, systolic 116 mm[Hg] Naman eph [place] pulse rate 84 /min Anil Man[place]op oxygen saturation, oximetry 99 % Anil Appletonacop respiratory rate E&M 16 /min Anil [place] weight E&M 96 [lb_av] Anil Manacop blood pressure, diastolic 74 mm[Hg] He ather Blunt blood pressure, systolic 100 mm[Hg] Hea ther Blunt pulse rate 112 /min Tete Blunt oxygen saturation, oximetry 98 % Tete Blunt respiratory rate E&M 16 /min Tete Blunt weight E&M 123 [lb_av] Tete Blunt ALLERGIES No Known Drug Allergies HISTORY OF MEDICATION USE Medication Status Instructions Dates Provider Indications Com ments VITAMIN D3 TABLET completed 1 TAB DAILY - Yesenia Choi COMPLETE 14-0.4 MG ORAL TABLET completed 1 TAB DAILY - Yesenia Choi SOCIAL HISTORY Date Observation Value Provider social history reviewed E&M reviewed Dayron Mayorga MD social history reviewed E&M reviewed Dayron Mayorga MD drug use none Dayron Mayorga MD physical exercise, f requency, days per week [facility] averag e drinks per day yes LinkLog alcohol use, average drinks per day none LinkLog number of years as a smoker less than 10 years LinkLog smoking status Quit [facility] quit smoking, stage quit Chaz leary RN smoking status Quit Chaz Cr RN social history E&M Marital Status: Single Chaz Cr RN social history reviewed E&M reviewed Chaz Cr RN MENTAL STATUS Date Observation Value Provider assessment of judgme nt and insight E&M Alert and oriented to time, place and person. Mood and affect are normal. Dayron Mayorga MD assessment of judgme nt and insight E&M Alert and oriented to time, place and person. Mood and affect are normal. Dayron Mayorga MD assessment of judgme nt and insight E&M Alert and oriented to time, place and person. Mood and affect are normal. Chaz Cr RN INSURANCE PROVIDERS Payer name Policy type / Coverage type Amelie red republican ID BLUE PREFERRED HMO Blue [employer] [id number] TREATMENT PLAN Date Name Performer Routine follow-up, E cho results: B P today: 116/76 Prior BP: 100/74 (07/18/2010) E chocardiogram: Normal left ventricular systolic function. Normal left ventricular size. Normal left ventricular wall thickness. Normal left ventricular diastolic function. Normal E/E` 6.0. Left ventricular ejection fraction is estimated at 55%. Normal aortic root size. Normal pericardium with no pericardial or pleural effusion. GC (07/18/2010) Dayron Mayorga MD HISTORY OF PROCEDURES Procedure Date Procedure Name Provider Procedure Notes S tatus EKG Dayron Mayorga MD completed
--- OUTSIDE RECORDS SUMMARY | 2024-11-12 16:43 | XMS_ITS | Data Portability ---
Author Organization [facility] [place] Address [address] [place] [address] [place] [address] Care Team Providers Care Science Analyst Name Role Phone WANDER SANDOVAL Primary Care Provider Assessment Encounter Date Assessment Date Assessment LastModified by Organization Details LastModified Time 10/16/2024 10/16/2024 Patient is ___weeks . Discussed plan. [email or web address] Not available 10/16/2024 15:21:29 Plan of Treatment Reminders Order Date Submit Date Provider Last Modified By Organization Details Last Modified Time Details Appointments OB ROUTINE 2024 02:15P Anny MCMANUS MD Not available Not available Not available Lab drug screen, urine 2024 025 [email or web address] [place], [address], [place], [address], 10/16/2024 17:50:56 Referral None recorded. Procedures None recorded. Surgeries None recorded. Imaging US, obstetric , 2nd or 3rd trimester 2024 025 [email or web address] [place], [address], [place], [address], 10/16/2024 17:22:04 US, obstetric , nuchal transluce ncy 2024 025 [email or web address] [place], [address], [place], [address], 09/16/2024 09:05:48 US, obstetric , 1st trimester 2024 025 [email or web address] [place], [address], [address], [place], [address], 08/19/2024 17:20:25 Medication Orders None recorded. Patient TargetsNo targets recorded. Patient InstructionsNo instructions recorded. Reason for Referral None Reported. Results Created Date Observation Date Name Description Value Unit Range Abnormal Flag Note LastModifiedBy Organization Detail LastModifiedTime 08/23/1908/23/2024 [UNIT Y] ANEUP LOIDY NIPT fraction 5.8% normal Not Available [facility] [address] [place] [address], [place], [address], 08/23/2024 02:12:25 08/23/19 25 08/23/2024 [UNIT Y] ANEUP LOIDY NIPT 22Q11.2 microdeletio n LOW RISK <1 in 10,000 normal Not Available [facility] [address] [facility], [place], [address], 08/23/2024 02:12:25 08/23/19 25 08/23/2024 [UNIT Y] ANEUP LOIDY NIPT sex chromosome aneuploidy NOT DETECT ED normal Not Available [facility] [address] [facility], [place], [address], 08/23/2024 02:12:25 08/23/19 25 08/23/2024 [UNIT Y] ANEUP LOIDY NIPT monosomy X LOW RISK <1 in 10,000 normal Not Available [facility] [address] [facility], [place], [address], 08/23/2024 02:12:25 08/23/19 25 08/23/2024 [UNIT Y] ANEUP LOIDY NIPT trisomy 13 LOW RISK <1 in 10,000 normal Not Available [facility] [address] [facility], [place], [address], 08/23/2024 02:12:25 02/15/08/23/2024 [UNIT Y] ANEUP LOIDY NIPT trisomy 18 LOW RISK <1 in 10,000 normal Not Available [facility] [address] [facility], [place], [address], 08/23/2024 02:12:25 08/23/19 25 08/23/2024 [UNIT Y] ANEUP LOIDY NIPT trisomy 21 LOW RISK <1 in 10,000 normal Not Available [facility] [address] [facility], [place], [address], 08/23/2024 02:12:25 08/23/19 25 08/23/2024 [UNIT Y] ANEUP LOIDY NIPT sex FEMALE normal Not Available [facility] [address] [facility], [place], [address], 08/23/2024 02:12:25 08/23/19 25 08/23/2024 [UNIT Y] ANEUP LOIDY NIPT gestation SINGLE TON normal Not Available [facility] [address] [facility], [place], [address], 08/23/2024 02:12:25 08/23/19 25 08/23/2024 [UNIT Y] ANEUP LOIDY NIPT for detailed report, see pdf See PDF normal Not Available [facility] [address] [facility], [place], [address], 08/23/2024 02:12:25 08/29/19 25 08/29/2024 [UNIT Y] JASON Eastman sickle cell disease/beta -thalassemia /hemoglobino pathies carrier screen NEGATI VE normal Not Available [facility] [address] [facility], [place], [address], 08/29/2024 02:45:36 08/29/19 25 08/29/2024 [UNIT Y] JASON Eastman alpha-thalas semia carrier screen NEGATI VE normal Not Available [facility] [address] [facility], [place], [address], 08/29/2024 02:45:36 08/29/19 25 08/29/2024 [UNIT Y] JASON Eastman cystic fibrosis carrier screen NEGATI VE normal Not Available [facility] [address], [place], [address], 08/29/2024 02:45:36 08/29/19 25 08/29/2024 [UNIT Y] JASON Eastman spinal muscular atrophy carrier screen NEGATI VE 2 SMN1 copies , SNP not presen t normal Not Available [facility] [address], [place], [address], 08/29/2024 02:45:36 08/29/19 25 08/29/2024 [UNIT Y] JASON Eastman for detailed report, see pdf See PDF normal Not Available [facility] [address], [place], [address], 08/29/2024 02:45:36 08/18/19 25 08/18/2024 CBC W/DIF F WBC 10.8 10'3/ uL 3.5-10 .5 high Not Available [facility] (Lab) [address] [place], [address], 08/19/2024 14:31:50 08/18/19 25 08/18/2024 CBC W/DIF F RBC 4.34 10'6/ uL (based on docume nted legal sex) 3.80-5 .20 Not Available [facility] (Lab) [address] [facility], [place], [address], 08/19/2024 14:31:50 08/18/19 25 08/18/2024 CBC W/DIF F HGB 12.4 g/dL (based on docume nted legal sex) 11.6-1 5.4 Not Available [facility] (Lab) [address] [place], [address], 08/19/2024 14:31:50 08/18/19 25 08/18/2024 CBC W/DIF F HCT 37.9 % (based on docume nted legal sex) 34.0-4 5.0 Not Available [facility] (Lab) [address], [place], [address], 08/19/2024 14:31:50 08/18/19 25 08/18/2024 CBC W/DIF F MCV 87.3 fL 80.0-9 9.0 Not Available [facility] (Lab) [address], [place], [address], 08/19/2024 14:31:50 08/18/19 25 08/18/2024 CBC W/DIF F MCH 28.6 pg 27.0-3 4.0 Not Available [facility] (Lab) [address], [place], [address], 08/19/2024 14:31:50 08/18/19 25 08/18/2024 CBC W/DIF F MCHC 32.7 g/dL 32.0-3 5.5 Not Available [facility] (Lab) [address], [place], [address], 08/19/2024 14:31:50 08/18/19 25 08/18/2024 CBC W/DIF F RDW 12.6 % 11.0-1 5.0 Not Available [facility] (Lab) [address] [facility], [place], [address], 08/19/2024 14:31:50 08/18/19 25 08/18/2024 CBC W/DIF F plt 320 10'3/ uL 150-40 0 Not Available [facility] (Lab) [address], [place], [address], 08/19/2024 14:31:50 08/18/19 25 08/18/2024 CBC W/DIF F MPV 10.6 fL 8.8-12 .1 Not Available [facility] (Lab) [address], [place], [address], 08/19/2024 14:31:50 08/18/19 25 08/18/2024 CBC W/DIF F neutrophils 67.2 % 34.0-7 3.0 Not Available [facility] (Lab) [address] [facility], [place], [address], 08/19/2024 14:31:50 08/18/19 25 08/18/2024 CBC W/DIF F lymphocytes 23.6 % 15.0-5 0.0 Not Available [facility] (Lab) [address] [facility], [place], [address], 08/19/2024 14:31:50 08/18/19 25 08/18/2024 CBC W/DIF F monocytes 6.9 % 1.0-15 .0 Not Available [facility] (Lab) [address] [facility], [place], [address], 08/19/2024 14:31:50 08/18/19 25 08/18/2024 CBC W/DIF F eosinophils 1.6 % 0.0-8. 0 Not Available [facility] (Lab) [address] [facility], [place], [address], 08/19/2024 14:31:50 08/18/19 25 08/18/2024 CBC W/DIF F basophils 0.5 % 0.0-2. 0 Not Available [facility] (Lab) [address] [facility], [place], [address], 08/19/2024 14:31:50 08/18/19 25 08/18/2024 CBC W/DIF F immature granulocytes 0.2 % no define d refere nce range Immat ure Granu locyt es (IG) repre sents autom ated enume ratio n of Metam yeloc ytes, Myelo cytes and Promy elocy bob when IG is < 5%. Blast s are not inclu ded in IG and repor kwame separ ately if prese nt. Not Available [facility] (Lab) [address] [facility], [place], [address], 08/19/2024 14:31:50 08/18/19 25 08/18/2024 CBC W/DIF F absolute neutrophils 7.2 10'3/ uL 1.5-8. 0 Not Available [facility] (Lab) [address] [facility], [place], [address], 08/19/2024 14:31:50 08/18/19 25 08/18/2024 CBC W/DIF F absolute lymphocytes 2.5 10'3/ uL 1.0-4. 0 Not Available [facility] (Lab) [address] [facility], [place], [address], 08/19/2024 14:31:50 08/18/19 25 08/18/2024 CBC W/DIF F absolute monocytes 0.7 10'3/ uL 0.2-1. 0 Not Available [facility] (Lab) [address] [facility], [place], [address], 08/19/2024 14:31:50 08/18/19 25 08/18/2024 CBC W/DIF F absolute eosinophils 0.2 10'3/ uL 0.0-0. 6 Not Available [facility] (Lab) [address] [facility], [place], [address], 08/19/2024 14:31:50 08/18/19 25 08/18/2024 CBC W/DIF F absolute basophils 0.1 10'3/ uL 0.0-0. 3 Not Available [facility] (Lab) [address] [facility], [place], [address], 08/19/2024 14:31:50 08/18/19 25 08/18/2024 CBC W/DIF F absolute immature granulocytes 0.0 10'3/ uL 0.00-0 .10 Refer ence range s for nonbi nary/ inter sex or unspe cifie d gende r patie nts have not been estab lishe d. Pleas e refer to the [facility] table for range s estab lishe d for cisge nder patie nts and evalu ate in the clini brandi conrado xt of the indiv idual patie nt: https ://gem stephenson book. nm.or g/Gen derX Not Available [facility] (Lab) [address], [place], [address], 08/19/2024 14:31:50 08/18/19 25 08/18/2024 TYPE/ RH/SC REEN ABO/Rh type O POS Not Available [facility] (Lab) [address], [place], [address], 08/19/2024 14:31:51 08/18/19 25 08/18/2024 TYPE/ RH/SC REEN antibody screen NEG Not Available [facility] (Lab) [address], [place], [address], 08/19/2024 14:31:51 08/18/19 25 08/18/2024 TYPE/ RH/SC REEN exp date 2024 23:59 Not Available [facility] (Lab) [address], [place], [address], 08/19/2024 14:31:51 08/18/19 25 08/18/2024 HIV 1/2 ANTIG EN/AN TIBOD Y, REFLE X CONFI RMATI ON HIV antigen/anti body Nonrea ctive nonrea ctive HIV-1 antig en and HIV-1 /HIV- 2 antib odies were not detec kwame. No labor atory evide nce of HIV infec tion. Not Available [facility] (Lab) [address], [place], [address], 08/19/2024 14:31:51 08/18/19 25 08/18/2024 HEPAT ITIS C ANTIB CHERELLE SCREE N, REFLE X TO CONFI RMATI ON hepatitis C antibody Non-re active non-re active Antib odies to HCV Not Detec kwame, does not exclu de the possi bilit y of expos ure to HCV. Not Available [facility] (Lab) [address], [place], [address], 08/19/2024 14:31:52 08/18/19 25 08/18/2024 HEPAT ITIS B SURFA CE ANTIG EN hepatitis B surface antigen Non-re active non-re active This assay was perfo rmed using [employer] ratio n reage nts and test kits. Value s obtai phong with other assay metho ds or kits canno t be used inter caldwell eably . Not Available [facility] (Lab) [address] [facility], [place], [address], 08/19/2024 14:31:53 08/18/19 25 08/18/2024 HEMOG LOBIN A1C hemoglobin A1C 5.1 % 4.0-5. 6 The Ameri can Diabe bob Assoc iatio n recom mends that a prima ry goal of thera py shoul d be a HBA1C of < 7% and that physi cians shoul d reeva luate the treat ment regim en in patie nts with HBA1C value s consi stent ly > 8%. <5.7% Laurence l 5.7 - 6.4% Incre ased risk for diabe bob >=6.5 % Diagn ostic of diabe bob <7.0% Goal of thera py >8.0% Actio n sugge sted Not Available [facility] (Lab) [address] [facility], [place], [address], 08/19/2024 14:31:53 08/18/19 25 08/18/2024 RUBEL LA IGG ANTIB CHERELLE, QUANT rubella antibodies, IgG Non-Re active reacti ve abnormal Not Available [facility] (Lab) [address] [place], [address], 08/19/2024 14:31:54 08/18/19 25 08/18/2024 RUBEL LA IGG ANTIB CHERELLE, QUANT rubella antibodies, IgG quant <10.0 IU/mL >=10 low Non-r eacti ve (Non- Immun e) <10 IU/mL React ralph (Immu ne) > or = 10 IU/mL Not Available [facility] (Lab) [address] [facility], [place], [address], 08/19/2024 14:31:54 08/18/19 25 08/18/2024 RPR SCREE N, REFLE X TITER /CONF IRMAT ION RPR screen Nonrea ctive nonrea ctive Not Available [facility] (Lab) [address] [facility], [place], [address], 08/19/2024 14:31:54 08/18/19 25 08/18/2024 IMAGE GUIDE D PAP AND HPV REGAR DLESS image guided Pap, HPV regardless of Pap result SEE RESULT S BELOW CASE REPOR T: Cytol ogy Gynec ologi brandi Repor t Case: [id number] Autho ruel g Provi ankit: Krystina Mcmanus MD Colle cted: 08/18 1659 Order ing Locat ion: [place] [facility] Recei mena: 08/19 0806 First Scree n: Mookie Villagomez, CT Rescr een: Belkis germain, Derrick moore, CT Speci men: Screneal florence Pap - Image d, Cervi x STATE MENT OF ADEQU ACY: Satis facto ry for evalu ation Trans forma tion zone compo nent absen t The absen ce of an endoc ervic al compo nent was confi rmed by an addit ional scree ner. ----- ----- ----- ----- ----- ----- ----- ----- ----- ----- ----- ----- ----- ----- ----- ----- ----- ---- FINAL DIAGN OSIS: Negat ralph for Intra epith elidemetris eastman or Rodriguez randolph ([facility]) . Elect fawn garcia d by Derrick germain, CT on 2024 at 1315 TELEPHONE TRIAGE NURSE ----- ----- ----- ----- ----- ----- ----- ----- ----- ----- ----- ----- ----- ----- ----- ----- ----- ---- HPV RESUL TS: HPV mRNA E6/E7 : No HPV mRNA Detec kwame NOTE: This high risk HPV mRNA assay detec ts fourt een high- risk HPV types (16, 18, 31, 33, 35, 39, 45, 51, 52, 56, 58, 59, 66, 68) witho ut diffe renti ation . COMME NT: This speci men was revie wed by a Cytot echno logis t and/o r Patho logis t (as indic ated in this repor t) after evalu ation using the Thinp rep Imagi ng Syste m. CLINI BRANID INFOR MATIO N: Menst rual Statu s: LMP (if appli cable ): Clini brandi Histo ry/Pr eviou s Pap: Type of Neopl fuentes (if appli cable ): Signi fican t Clini brandi Findi ngs: Other Histo ry: Hormo kristie (if appli cable ): PAP EDUCA TIGRE L NOTE: The Pap Test is a scree florence test with an inher ent false negat ralph rate. Liqui d-bas ed sampl ing may decre ase, but will not elimi oma, false negat ralph resul ts. A negat ralph resul t does not precl ude the prese nce and/o r devel opmen t of disea se, since the prese nce of abnor mal cells in the sampl e depen ds on the locat ion of the lesio n and sampl ing techn ique. Loida nued regul ar scree florence is the best metho d of cance r preve ntion . If repor kwame cytol ogic findi ng do not corre late with physi brandi and/o r histo rical findi ngs, furth er inves tigat ion is recom tima d, as joey mcarthur nted. Not Available [facility] (Lab) [address], [place], [address], 08/22/2024 01:44:44 08/18/19 25 08/18/2024 TRICH OMONA S VAGIN ROBERT (RRNA ) trichomonas vaginalis ribosomal RNA (rrna) Negati ve negati ve Not Available [facility] (Lab) [address] [facility], [place], [address], 08/22/2024 01:44:45 08/18/19 25 08/18/2024 CT/GC (ROBINSON) , THINP REP VIAL chlamydia trachomatis, PCR Negati ve negati ve Not Available [facility] (Lab) [address] [facility], [place], [address], 08/22/2024 01:44:45 08/18/19 25 08/18/2024 CT/GC (ROBINSON) , THINP REP VIAL neisseria gonorrhoeae, PCR Negati ve negati ve Not Available [facility] (Lab) [address] [facility], [place], [address], 08/22/2024 01:44:45 10/17/1910/16/2024 CULTU RE: URINE result report SEE RESULT S BELOW Test: Cultu re: Urine Speci men Sourc e: Urine - Clean Catch Speci men Type: Urine Speci men Date: 2024 Resul t Date: 2024 Resul t Statu s: Final resul t Abnor mal: No Resul ting Lab: [facility] [address] [facility] [address] Tel: CULTU RE ----- ----- ----- --- No growt h in 1 day (dete ction level of 10,00 0 colon ies / ml.) Not Available [facility] (Lab) [address] [facility], [place], [address], 10/17/2024 22:39:36 10/17/19 25 10/16/2024 drug scree n, urine Amphetamines : negati ve Not Available [place] [facility] [address], [place], [address], 10/16/2024 17:50:24 10/17/19 25 10/16/2024 drug scree n, urine Cannabinoids : negati ve Not Available [place] [address], [place], [address], 10/16/2024 17:50:24 10/17/19 25 10/16/2024 drug scree n, urine Cocaine: negati ve Not Available [place] [address], [place], [address], 10/16/2024 17:50:24 10/17/19 25 10/16/2024 drug scree n, urine Opiates: negati ve Not Available [place] [address], [place], [address], 10/16/2024 17:50:24 10/17/19 25 10/16/2024 drug scree n, urine Phenocyclidi ne: negati ve Not Available [place] [address], [place], [address], 10/16/2024 17:50:24 10/17/19 25 10/16/2024 drug scree n, urine Barbiturates : negati ve Not Available [place] [address], [place], [address], 10/16/2024 17:50:24 10/17/19 25 10/16/2024 drug scree n, urine Benzodiazepi kristie: negati ve Not Available [place] [address], [place], [address], 10/16/2024 17:50:24 10/17/19 25 10/16/2024 drug scree n, urine Ethanol: negati ve Not Available [place] [address], [place], [address], 10/16/2024 17:50:24 10/17/19 25 10/16/2024 drug scree n, urine Hallucinogen s: negati ve Not Available [place] [address], [place], [address], 10/16/2024 17:50:24 10/17/19 25 10/16/2024 drug scree n, urine Inhalants: negati ve Not Available [place] [address], [place], [address], 10/16/2024 17:50:24 10/17/19 25 10/16/2024 drug scree n, urine Anabolic Steroids: negati ve Not Available [place] [address], [place], [address], 10/16/2024 17:50:24 08/18/19 25 08/18/2024 US, obste tric, nucha l trans lucen cy No observ ation record ed. [email or web address] [place] [address], [place], [address], 08/18/2024 17:19:34 08/18/19 25 08/18/2024 US, obste tric, 1st trime ster No observ ation record ed. [email or web address] [place] [address], [place], [address], 08/18/2024 17:19:44 08/18/19 25 08/18/2024 US, obste tric, nucha l trans lucen cy No observ ation record ed. [email or web address] [place] [address], [place], [address], 08/18/2024 22:24:00 10/17/19 25 10/16/2024 US, obste tric, 2nd or 3rd trime ster No observ ation record ed. [email or web address] [place] [address], [place], [address], 10/16/2024 16:27:47 04/04/27 2510/16/2024 US, obste tric, 2nd or 3rd trime ster No observ ation record ed. [email or web address] [place] [address], [place], [address], 10/16/2024 22:39:53 Result Notes None recorded. Problems Name Problem SNOMED Code Status Onset Date Resolution Date Notes Provider Name and Address Organization Details Recorded Time Pregnanc y test negative 832380702 Completed 201206/29/2020 Negative Pregnanc y Test;Pra ctice ID: 0001 Emily Azevedo MD [address], [place], [address], [facility] 0 17:31:34 Endometr iosis of pelvic peritone um [id number] Completed 201210/13/2020 Endometr iosis of pelvic peritone um;Pract ice ID: 0001 Eugenie liang, [facility] 1 09:54:51 Dysmenor clover [id number] Completed 201406/29/2020 Dysmenor clover;Pra ctice ID: 0001 Emily Azevedo MD [address], [place], [address], [facility] 0 17:31:10 Female genital organ symptoms [id number] Completed 201406/29/2020 Pelvic Pain;Pra ctice ID: 0001 Emily Azevedo MD [address], [place], [address], [facility] 0 17:31:21 Chronic gonorrhe a lower genitour inary tract [id number] Completed 201406/29/2020 Gonococc al infectio n, chronic, of lower genitour inary tract;Pr actice ID: 0001 Emily Azevedo MD [address], [place], [address], [facility] 0 17:31:03 Right lower quadrant pain [id number] Completed 201406/29/2020 Abdomina l pain, right lower quadrant ;Practic e ID: 0001 Eimly Azveedo MD [address], [place], [address], [facility] 0 17:31:37 Exposure to sexually transmis sible disorder Completed 201406/29/2020 Contact w and exposure to infect w a sexl mode of transmis s;Practi ce ID: [address], [place], [address], [facility] [address] 17:31:[address] Concept Completed 201706/29/2020 Encntr for obstetrics gyn physician exam (general ) (routine ) w/o abn findings ;Practic e ID: 0001 Emily Azevedo MD [address], [place], [address], [facility] 0 17:31:42 Pregnanc y detectio n examinat ion Completed 201706/29/2020 Encounte r for pregnanc y test, result positive ;Practic e ID: [address], [place], [address], [facility] 0 17:31:31 Speciali zed medical examinat ion Completed 201106/29/2020 Gynecolo gical Examinat ion;Rosales rded Elsewher e: No Locat ion: [facility] S ource: EHR Tool Crib Manager srini: N Practi ce ID: 0001 Philip lable Time: 02:30:00 PM Emily Azevedo MD [address], [place], [address], [facility] 0 17:31:45 Vaginiti s and vulvovag initis Completed 201106/29/2020 Vaginiti s;Record ed Elsewher e: No Locat ion: [facility] S ource: EHR Tool Crib Manager srini: N Practi ce ID: 0001 Philip lable Time: 02:30:00 PM Emily Azevedo MD [address], [place], [address], [facility] 0 17:31:47 Family planning surveill ance Completed 201106/29/2020 Contrace ptive surveill ance, unspecif ied;Rosales rded Elsewher e: No Locat ion: [facility] S ource: EHR Tool Crib Manager srini: N Practi ce ID: 0001 Philip lable Time: 02:30:00 PM Emily Azevedo MD [address], [place], [address], [facility] 0 17:31:19 Anxiety state [id number] Completed 201110/13/2020 Anxiety; Recorded Elsewher e: No Locat ion: [facility] S ource: EHR Tool Crib Manager srini: N Beckati ce ID: 0001 Philip lable Time: 10:30:00 AM Eugenie liang, [facility] 1 09:54:56 Abdomina l pain [id number] Completed 201106/29/2020 Abdomina l pain, other specifie d site;Rec orded Elsewher e: No Locat ion: [facility] S ource: EHR Tool Crib Manager srini: N Practi ce ID: [id number] Philip lable Time: 11:30:00 AM Emily Azevedo MD [address], [place], [address], [facility] 0 17:30:51 Acute upper respirat ory infectio n [id number] Completed 201106/29/2020 Upper Respirat ory Infectio n, Acute;Re corded Elsewher e: No Locat ion: [facility] S ource: EHR Tool Crib Manager srini: N Practi ce ID: [id number] Philip lable Time: 09:30:00 AM Emily Azevedo MD [address], [place], [address], [facility] 0 17:30:53 Dyspareu milan [id number] Completed 201210/13/2020 Dyspareu milan;Rosales rded Elsewher e: No Locat ion: [facility] S ource: EHR Tool Crib Manager srini: N Practi ce ID: [id number] Philip lable Time: 01:53:00 PM Eugenie liang, [facility] 1 09:54:49 At increase d risk of sexually transmit kwame infectio n [id number] Completed 201206/29/2020 Contact with or exposure to venereal diseases ;Recorde d Elsewher e: No Locat ion: [facility] S ource: EHR Tool Crib Manager srini: N Beckati ce ID: [id number] Philip lable Time: 01:45:00 PM Emily Azevedo MD [address], [place], [address], [facility] 0 17:31:00 Dysfunct ional uterine bleeding Completed 201106/29/2020 Other disorder s of menstrua tion and other abnormal bleeding from female genital tract;Re corded Elsewher e: No Locat ion: [facility] S ource: EHR Tool Crib Manager srini: N Practi ce ID: [id number] Philip lable Time: 11:30:00 AM Emily Azevedo MD [address], [place], [address], [facility] 0 17:31:07 Screenin g for malignan t neoplasm of cervix Completed 201106/29/2020 Screenin g for malignan t neoplasm s of the cervix;R ecorded Elsewher e: No Locat ion: [facility] S ource: EHR Tool Crib Manager srini: N Beckati ce ID: 0001 Pihlip lable Time: 02:30:00 PM Emily Azevedo MD [address], [place], [address], [facility] 0 17:31:40 Amenorrh ea [id number] Completed 201706/29/2020 Amenorrh ea;Recor ded Elsewher e: No Locat ion: Bautista de jesus [facility] S ource: EHR Tool Crib Manager srini: N Practi ce ID: 0001 Philip lable Time: 08:30:00 AM Emily Azevedo MD [address], [place], [address], [facility] 0 17:30:55 Postpart um care Completed 201006/29/2020 Routine postpart um follow-u p;Practi ce ID: [id number] Emily Azevedo MD [address], [place], [address], [facility] 0 17:31:28 Depressi ve disorder [id number] Completed 201110/13/2020 Depressi ve disorder , not elsewher e classifi ed;Pract ice ID: 0001 Eugenie liang, [facility] 1 09:54:57 Ill-defi phong intestin al infectio n Completed 201106/29/2020 No Show Fee;Prac arianna ID: [id number] Emily Azevedo MD [address], [place], [address], [facility] 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 1 09:54:54 Pregnanc y [id number] Completed 201910/21/2020 Soha liang, [facility] 5 09:25:06 Fibromya lgia 049457315 Completed Tramadol [facility], [facility] 14:45:07 History of abnormal cervical Papanico laou smear [id number] Completed Colpo 04/10/20 Rochelle [facility], [facility] 14:45:06 Ear lesion [id number] 9104 Completed ENT referral Rochelle [facility], [facility] 14:45:06 Pregnanc y [id number] Active 2024 Soha [facility], [facility] 5 09:25:06 Problem Notes None recorded. Procedures Surgical History Date Name Laterality Status Provider Name and Address Organization Details Recorded Time 08/18/19 Date of Last Pap Smear completed Marilou Delvalle [facility] 08/18/2024 17:25:19 06/29/20 22 Control Implant Removal completed Caryn Felix SELW[facility]- [address], [place], [address], [facility] 06/29/2022 12:43:52 06/27/20 21 Control Implant Insertion completed Emily Azevedo MD [address], [place], [address], [facility] 06/27/2021 11:12:20 04/09/20 20 Colposcopy completed Paulo Mcmanus MD [address], [place], [address], [facility] 04/09/2020 11:19:01 07/09/19 17 termination of completed Marilou Delvalle [facility] 06/29/2022 13:20:22 07/09/19 15 Laparoscopy completed Marilou Delvalle [facility] 03/22/2020 11:17:51 07/09/19 14 extraction of wisdom tooth completed Marilou [facility] 08/18/2024 16:46:33 07/09/19 13 Laparoscopy completed Marilou [facility] 03/22/2020 11:17:07 07/09/19 06 termination of completed [facility] 06/29/2022 13:20:19 07/09/18 97 Tonsillectomy completed [facility] 03/22/2020 11:16:01 Imaging Results Imaging Date Name Status LastModified by Organization Details LastModified Time 08/18/2024 US, obstetric, nuchal translucency completed [email or web address] [address], [place], [address], 08/18/2024 17:19:34 08/18/2024 US, obstetric, 1st trimester completed [email or web address] [facility] [address], [place], [address], 08/18/2024 17:19:44 08/18/2024 US, obstetric, nuchal translucency completed [email or web address] [facility] [address], [place], [address], 08/18/2024 22:24:00 10/16/2024 US, obstetric, 2nd or 3rd trimester completed [email or web address] [facility] [address], [place], [address], 10/16/2024 16:27:47 10/16/2024 US, obstetric, 2nd or 3rd trimester completed [email or web address] [facility] [address], [place], [address], 10/16/2024 22:39:53 Procedure Notes None recorded. Medical Equipment None Reported. Allergies No known drug allergies Medications Name Sig Start Date Stop Date Status Note LastModified by Organization Details LastModified Time neomycin- polymyxin -hydrocor t 3.5 mg/mL-10, 000 unit/mL-1 % ear solution 06/24 completed Not Available Not Available Not Available azithromy jae 250 mg tablet TAKE 2 TABLETS BY MOUTH ON DAY 1, AND THEN TAKE 1 TABLET BY MOUTH ONCE A DAY ON DAY 2 THROUGH DAY 5 08/18 completed Not Available Not Available Not Available tramadol 37.5 mg-acetam inophen 325 mg tablet take 2 tablet by oral route every 4 - 6 hours as needed, for up to 5 days; do not exceed 8 tablets in 24hrs 04/13 completed Prescrib ed Elsewher e: No [facility] odify By: mame evans DateTime : 02/20/20 01:45:00 PM Not Available Not Available Not Available fluconazo le 150 mg tablet TAKE 1 TABLET BY MOUTH EVERY 72 HOURS 08/18 completed Not Available Not Available Not Available fluconazo le 200 mg tablet Take 1 tablet PO on days 1, 4 & 7 x 3 doses. 06/29 completed Not Available Not Available Not Available prednison e 20 mg tablet TAKE 2 TABLETS BY MOUTH ONCE DAILY WITH FOOD FOR 5 DAYS 08/18 completed Not Available Not Available Not Available metronida zole 500 mg tablet take 1 tablet by oral route 2 times every day x 7 days with food. 08/18 completed Not Available Not Available Not Available tramadol 50 mg tablet TAKE 1 TABLET BY MOUTH THREE TIMES DAILY NEEDED FOR PAIN active Not Available Not Available No t Available Macrobid 100 mg capsule take 1 capsule by oral route every 12 hours with food, as directed 01/26 completed Prescrib ed Elsewher e: No Locat ion: Pradip neal [facility] odify By: mame evans DateTime : 12/11/19 08:09:01 PM Not Available Not Available Not Available Celebrex 200 mg capsule take 1 by Oral route every 12 hours 09/17 completed Prescrib ed Elsewher e: No [facility] By: emernst Encounte r DateTime : 11/11/19 15 02:45:00 PM Not Available Not Available Not Available Metrogel Vaginal 0.75 % (37.5 mg/5 gram) insert 1 applicat orful by vaginal route every day at bedtime 12/07 completed Prescrib ed Elsewher e: No Locat ion: [facility] odify By: mame fitzpatrickunter DateTime : 11/04/19 15 04:21:49 PM Not Available Not Available Not Available Depo-Prov era 150 mg/mL intramusc ular suspensio n inject 1 millilit er (150MG) by intramus cular route every 3 months 10/25 completed Prescrib ed Elsewher e: No [facility] By: gmedical Encount er DateTime : 10/26/19 12 02:36:26 PM Not Available Not Available Not Available Zoloft 50 mg tablet take 1 tablet (50MG) by oral route every day 11/05 completed Prescrib ed Elsewher e: No [facility] By: daljit teresa DateTime : 10/16/19 12 09:36:22 AM Not Available Not Available Not Available mupirocin 2 % topical ointment APPLY TOPICALL Y TO THE AFFECTED AREA THREE TIMES DAILY FOR 5 DAYS DIRECTED 08/18 completed Not Available Not Available Not Available Rocephin 500 mg solution for injection inject (500MG) by intramus cular route every 12 hours 01/26 completed Prescrib ed Elsewher e: No [facility] odify By: maem De Jesus ncounter DateTime : 12/08/19 15 04:00:00 PM Not Available Not Available Not Available Bactrim DS 800 mg-160 mg tablet take 1 tablet by oral route every 12 hours 10/09 completed Prescrib ed Elsewher e: No [facility] odify By: karen fitzpatrickuntrenetta DateTime : 08/22/19 12 11:39:52 AM Not Available Not Available Not Available Zithromax 500 mg tablet take 2 tablet (1000MG) by oral route once 12/23 completed Prescrib ed Elsewher e: No Locat ion: [facility] odify By: stephon evans DateTime : 11/08/19 13 07:06:47 PM Not Available Not Available Not Available TriNessa (28) 0.18 mg(7)/0.2 15 mg(7)/0.2 5 mg(7)-35 mcg tablet take 1 tablet by oral route every day 11/05 completed Prescrib ed Elsewher e: No Locat ion: [facility] odify By: daljit teresa DateTime : 02/23/20 12 09:30:00 AM Not Available Not Available Not Available Ortho-Cyc pita (28) 0.25 mg-35 mcg tablet take 1 tablet by oral route every day 10/09 completed Prescrib ed Elsewher e: No Locat ion: [facility] odify By: karen evans DateTime : 08/14/19 12 02:30:00 PM Not Available Not Available Not Available tramadol 07/29 completed Not Available Not Available Not Available Flexeril 04/05 completed Not Available Not Available Not Available active Not Available Not Avai lable Not Available Nexplanon 68 mg subdermal implant Inject by subcutan eous route. 08/18 completed Not Available Not Available Not Available Slynd 4 mg (28) tablet TAKE 1 TABLET BY MOUTH ONCE DAILY WITH MEALS 08/18 completed Not Available Not Available Not Available ID NOW COVID-19 Test Kit TEST DIRECTED TODAY 06/08 completed Not Available Not Available Not Available Vitals Date Recorded Body height Body mass index (BMI) Body weight Systolic blood pressure Diastolic blood pressure Provider Name and Address Organization Details Last Updated DateTime 08/18/2024 161.29 cm 20.9 kg/m2 78178.08 g 103 mm[Hg] 65 mm[Hg] Marilou Delvalle [facility] 5 16:43:39 Date Recorded Body height Body mass index (BMI) Body weight Systolic blood pressure Diastolic blood pressure Provider Name and Address Organization Details Last Updated DateTime 09/15/2024 161.29 cm 21.8 kg/m2 43632.05 g 118 mm[Hg] 83 mm[Hg] Soha Daugherty [facility] 5 09:22:16 Date Recorded Body height Body mass index (BMI) Body weight Systolic blood pressure Diastolic blood pressure Provider Name and Address Organization Details Last Updated DateTime 10/16/2024 161.29 cm 22.3 kg/m2 50196.82 g 107 mm[Hg] 69 mm[Hg] Sohadenise Alexiser [facility] 5 15:24:26 Social History Question Answer Notes LastModified by Organizat ion Details LastModified Time Tobacco Smoking Status Former Smoker Marilou Adelia liang, [facility] 03/22/2020 11:05:51 What Is Your Level Of Alcohol Consumption? None Information not available 07/29/2020 If You Are , What Was Your Level Of Alcohol Consumption Prior To ? Occasional [email or web address] Information not available 03/22/2020 Are You Blind Or Do You Have Difficulty Seeing? No Information not available 06/08/2022 What Is Your Level Of Caffeine Consumption? Moderate Information not available 07/29/2020 In The 14 Days Before Symptom Onset, Have You Had Close Contact With A Laboratory-confir med COVID-19 While That Case Was Ill? No [email or web address] Information not available 08/18/2024 In The 14 Days Before Symptom Onset, Have You Had Close Contact With A Person Who Is Under Investigation For COVID-19 While That Person Was Ill? No [email or web address] Information not available 08/18/2024 Have You Been To An Area Known To Be High Risk For COVID-19? No [email or web address] Information not available 08/18/2024 Are You Deaf Or Do You Have Serious Difficulty Hearing? No Information not available 06/08/2022 What Type Of Diet Are You Following? REGULAR Information not available 06/08/2022 Which Illicit Or Recreational Drugs Have You Used? Marijuana Information not available 07/29/2020 Do You Or Have You Ever Used E-cigarettes Or Vape? Never Used Electronic Cigarettes [email or web address] Information not available 03/22/2020 How Many Days Of Moderate To Strenuous Exercise, Like A Brisk Walk, Did You Do In The Last 7 Days? 3 Information not available 07/29/2020 When Did You Quit Smoking? 1-5yearssincel [email or web address] Information not available 07/29/2020 How Many Years Have You Used Illicit Or Recreational Drugs? 15 Information not available 07/29/2020 What Was The Date Of Your Most Recent Tobacco Screening? 08/18/2024 [email or web address] Information not available 08/18/2024 Do You Use Your Seat Belt Or Car Seat Routinely? Yes Information not available 06/08/2022 Are You Sexually Active? Yes Information not available 06/08/2022 Do You Have Smoke And Carbon Monoxide Detectors In Your Home? Yes Information not available 06/08/2022 At What Age Did You Start Smoking Tobacco? 18 Information not available 07/29/2020 Do You Or Have You Ever Used Smokeless Tobacco? Former Smokeless Tobacco User Information not available 07/29/2020 How Much Tobacco Do You Smoke? No [email or web address] Information not available 03/22/2020 Do You Feel Stressed (tense, Restless, Nervous, Or Anxious, Or Unable To Sleep At Night)? [id number] Information not available 06/08/2022 Do You Use Any Illicit Or Recreational Drugs? Yes Information not available 07/29/2020 Do You Use Sunscreen Routinely? Yes Information not available 06/08/2022 How Many Years Have You Smoked Tobacco? 10 Information not available 07/29/2020 Have You Used IV Drugs? No Information not available 07/29/2020 Do You Or Have You Ever Used Any Other Forms Of Tobacco Or Nicotine? Yes Information not available 07/29/2020 How Many Years Have You Used Smokeless Tobacco? 2 Information not available 07/29/2020 Sex: Unknown Functional Status Question Answer Note LastModified by Organizat ion Details LastModified Time Do you have difficulty walking or climbing stairs? No Information not available 06/08/2022 Are you able to walk? YESWOREST Information not available 06/08/2022 Are you able to care for yourself? Yes Information not available 06/08/2022 Do you have difficulty dressing or bathing? No Information not available 06/08/2022 What is your exercise level? Moderate Information not available 07/29/2020 Mental Status None recorded. Family History Relationship Description Onset Age of this Age Resolved Age Notes LastModified by Organization Details LastModified Time Paternal Grandfather Diabetes mellitus [email or web address] Not available 03/22 11:00:25 Paternal Grandfather Malignant neoplasm of lung [email or web address] Not available 03/22 11:02:15 Paternal Grandmother Diabetes mellitus [email or web address] Not available 03/22 11:00:25 Paternal Grandmother Anemia [email or web address] Not available 11:00:40 Paternal Grandmother Cyst of ovary [email or web address] Not available 03/22 11:01:40 Mother Anemia [email or web address] Not available 03/22/2020 11:00:33 Mother Chronic hepatitis [email or web address] Not available 03/22 11:01:07 Mother Cyst of ovary [email or web address] Not available 03/22 11:01:40 Paternal Aunt Cyst of ovary [email or web address] Not available 03/22 11:01:40 Maternal Grandmother Malignant tumor of breast [email or web address] Not available 03/22 11:01:56 Maternal Aunt Malignant tumor of breast [email or web address] Not available 03/22 11:01:56 Maternal Aunt Malignant tumor of cervix [email or web address] Not available 03/22 11:05:35 Maternal Grandfather Malignant neoplasm of lung [email or web address] Not available 03/22 11:02:15 Medical History Condition Response Allergies (Food, seasonal, environmental ) N Other N Drug/Latex Allergies/Reactions N Breast Cancer N Blood Transfusion N Lung Disease N Dermatologic Disorders N Defects or Inherited Disease N Breast Problem N Gestational Diabetes N Hematologic disorders N Anesthesia Complications N History of STI Y Deep Vein Thrombosis N Polycystic ovary syndrome N Anxiety Disorder Y Autoimmune disease N Arthritis N Polyps N Infertility N History of abnormal pap Y Acid Reflux (GERD) N Cancer N Stroke N Neurologic/Epilepsy N Endometriosis Y High Cholesterol N Headaches N Fibromyalgia Y Kidney Disease N Heart Problems N Thyroid Problems N Kidney or Bladder Problems Y GI Problems N Eating Disorder N Anemia N Art (IVF or FET) N Psychiatric Illness N Ovarian Cancer N Diabetes N Pulmonary (TB, Asthma) N Hepatitis/Liver Disease N No Past Medical History N Eczema N Abuse/Domestic Violence N Asthma N Depression/ depression Y Heart Disease N Pre-Eclampsia N Hypertension N Osteoporosis N Thrombophilias N Gynecological History Statement/Question Response Abnormal Pap Y Flow Moderate Date of LMP 05/22/2024 Was last menstrual period normal N STIs/STDs Yes Duration of Flow (days) 5 Current Control Method Are cycles usually normal N Frequency of Cycle (Q days) 14 Sexually Active? Y Menses Monthly Y Date of Last Pap Smear 08/18/2024 Sexual Problems? N Desired Control Method LMP Approximate Obstetrics History GPAL:G 6 P 2 0 3 2 Type Value Full Term 2 Induced 2 Spontaneous 1 Living 2 Total 6 Past Encounters Encounter ID Performer Location Encounter Start Date Encounter Closed Date Diagnosis/Indication Diagnosis SNOMED-CT Code Diagnosis ICD10 Code Diagnosis Note [id number] Paulo Mcmanus MD [facility] [address],[place] [address] 03/19/2020 11:32:11 03/28/2020 16:32:41 [id number] Gem Guerra [facility] [address],[place] [address] 03/19/2020 11:32:36 03/19/2020 14:04:34 [id number] Paulo Mcmanus MD [facility] [address],[place] [address] 04/05/2020 13:32:27 04/05/2020 15:03:29 Routine care 420005807 Z34.90 [id number] Paulo Mcmanus MD [facility] [address],[place] [address] 04/09/2020 10:26:56 04/09/2020 12:29:46 Abnormal cervical Papanicolaou smear 353260193 R87.619 normal colposcopy , patient will follow up for routine care. [id number] Paulo Mcmanus MD [facility] [address],[place] [address] 06/24/2021 09:39:55 06/24/2021 10:25:47 Gynecologic examination 88927844 Z01.419 This patient is here for her annual exam. A thorough history was taken. A physical exam was performed. Age appropriat e routine health screening was ordered, performed, and discussed. Recommende d testing was ordered. She was asked to follow up in one year. She will be informed of any test results. Cholestero l - today Pap - today to get Nexplanon [id number] Paulo Mcmanus MD [facility] [address],[place] [address] 05/10/2020 14:44:20 05/11/2020 08:33:30 [id number] Lisa Thomason [facility] [address],[place] [address] 05/10/2020 14:48:00 05/10/2020 18:13:01 Routine care 206090524 Z34.92 [id number] Paulo Mcmanus MD [facility] [address],[place] [address] 06/01/2020 15:23:59 06/01/2020 16:31:37 screening for malformation 464802279 Z36.3 [id number] Paulo Mcmanus MD [facility] [address],[place] [address] 06/01/2020 15:24:19 06/01/2020 17:05:19 Routine care 077302783 Z34.90 [id number] Emily Azevedo MD [facility] [address],[place] [address] 06/29/2020 16:04:20 06/29/2020 17:00:41 screening 330422415 Z36.2 [id number] Emily Azevedo MD [facility] [address],[place] [address] 06/29/2020 16:04:40 06/29/2020 17:41:25 Routine care 038734946 Z34.82 [id number] Paulo Mcmanus MD [facility] [address],[place] [address] 07/29/2020 15:23:53 07/30/2020 11:48:57 Routine care 280007090 Z34.90 [id number] Paulo Mcmanus MD [facility] [address],[place] [address] 08/12/2020 14:40:42 08/12/2020 16:15:38 Routine care 478646079 Z34.90 [id number] Paulo Mcmanus MD [facility] [address],[place] [address] 08/26/2020 14:35:21 08/26/2020 15:22:53 Routine care 177291654 Z34.90 [id number] [facility] [address],[place] [address] 09/09/2020 14:44:20 09/09/2020 15:36:42 Routine care 111408285 Z34.92 Additional precaution jason measures were taken to minimize potential exposure to the Covid-19 virus during this patient s visit, including available hand securities sales associate upon arrive, temperatur e check and being asked a series of screening questions. All staff wore face coverings during this encounter, as well as provided additional cleaning and sanitizing of all surfaces, including countertop s, pens, chairs, door handles, light switches, etc, prior to and following the patient s visit. [id number] Paulo Mcmanus MD [facility] [address],[place] [address] 09/23/2020 16:25:11 09/23/2020 17:25:35 Routine care [id number] Z34.90 [id number] Lisa Thomason CNM [facility] [address],[place] [address] 09/30/2020 14:44:04 09/30/2020 15:23:00 Routine care 497510525 Z34.92 [id number] Lisa Thomason CNM [facility] [address] [address] 10/07/2020 15:07:21 10/07/2020 15:37:55 Routine care 081845813 Z34.92 [id number] Emily Azevedo MD [facility] [address] [address] 06/27/2021 10:44:34 06/27/2021 11:40:41 Implantation of subcutaneous contraceptive 571102285 Z30.9 [id number] Caryn Felix [facility] [address],[place] [address] 06/08/2022 13:59:56 06/08/2022 17:53:48 Vaginitis 72793915 N76.0 Suspect BV yeastMedic atbeatrice Duque led on medication R/B's, Most common side effects, & use. All questions were answered to patient satisfacti on. Time spent in visit is a total of 30 mins with at least 50% of visit consisting of counseling and review of plan of care. Contracept ion care management 491139044 Z30.9 Currently has nexplanon placed about 7-8mos agoIt has benefited the skin condition that she initiated this therapy for; however, she continues to have a lot of break through bleeding or spotting (without pain) that happens about q2wks; which will still cause a skin flare up but it is SIGNIFICAN TLY more manageable than previous flares. With her Hx of endometrio sis we discussed other possible progestero ne only methods POP/Depo/I UD. We decided that a more systemic vs local effect BC might potentiall y be a better fit considerin g our purpose in taking it is to help her skin flare ups (i.e. blister/pu stule like lesions that appear inside her ears at time of menses-justen y painful). We agreed to start SLYND then return in 3wks and remove nexplanon. Our goal is to NOT have any dramatic hormonal drops that would initiate a flare up which is why we went ahead & started this therapy. Counseled on medication R/B's, Most common side effects, & use. All questions were answered to patient satisfacti on. RTO x8wks for med check & nexplanon removal. [id number] LEÓN Ramos[facility] [address],[place] [address] 06/29/2022 12:19:42 06/30/2022 12:42:08 Removal of subcutaneous contraceptive 798691074 Z30.46 Removal site was cleansed with betadine and 3cc of lidocaine used for anesthesia . Device was removed in normal fashion without difficulty . Steri stips and pressure bandage placed. [facility] ion care management 105895965 Z30.9 Patient is here today for a medicaton check of control. She voices goals of therapy have been met with use of this therapy & no flare ups at this point with skin issue. She denies neg side effects. She is eating, drinking, sleeping well; moods are stable & periods are well regulated. Wishes to continue this method of BC. Appropriat e to continue this medication . SLYND Rx sent Time spent in visit is a total of 15 mins with at least 50% of visit consisting of counseling and review of plan of care not including time spent on procedure. [id number] Paulo Mcmanus MD [facility] [address],[place] [address] 01/08/2024 17:13:31 01/09/2024 11:10:29 screening 666437521 Z36.87 Z3A.01 [id number] Paulo Mcmanus MD [facility] [address],[place] [address] 02/06/2024 15:52:44 02/06/2024 16:44:10 Threatened miscarriage 02159210 O20.0 Z3A.01 [id number] Paulo Mcmanus MD [facility] [address],[place] [address] 05/20/2024 16:39:30 05/20/2024 17:03:56 Vaginal discharge 493461522 N89.8 Yeast detected 146602292 R89.5 [id number] Paulo Mcmanus MD [facility] [address],[place] [address] 08/18/2024 15:23:54 08/18/2024 15:59:58 screening 277454736 Z36.3 Z3A.12 [id number] Paulo Mcmanus MD [facility] [address] [place] [address] 08/18/2024 15:24:11 08/18/2024 17:10:27 Amenorrhea 05618730 N91.2 this patient is a 30-year-ol d female who presents for amenorrhea . She is a positive test. Ultrasound revealed a 1st trimester gestation. Patient has no complaints . We talked about early care. Talked about genetic screening. We talked about her ultrasound results. We talked about the 12 week ultrasound that has genetic screening components . She was given recommenda tions on exercise, diet, over-the-c ounter medication s. We reviewed her obstetric history. We reviewed her medical history. We reviewed her social history. She will begin routine care at her next visit. [id number] Paulo Mcmanus MD [place] [address],[place] [address] 09/15/2024 09:11:33 09/15/2024 10:25:22 Routine care [id number] Z34.90 [id number] Paulo Mcmanus MD [place] [address],[place] [address] 10/16/2024 13:50:35 10/16/2024 15:03:17 screening for malformation [id number] Z36.3 Z3A.21 [id number] Paulo Mcmanus MD [place] [address],[place] [address] 10/16/2024 13:50:50 10/16/2024 16:04:29 Routine care [id number] Z34.90 Health Concerns Section Related Observation LastModified by Organization Detai ls LastModified Time None Recorded Concern Status LastModified by Organization Details LastModified Time None Recorded Advance Directives Directive None Recorded Payers Encounter Date Sequence Insurance Name Policy Number Policy Kohury Covered Member ID Khoury Member ID Guarantor Name 08/18/2024 1 [facility] (MEDICAID HMO) [id number] Wayne Smith [id number] Smith 08/18/2024 1 [facility] (MEDICAID HMO) [id number] Wayne Smith [id number] Wayne Smith 09/15/2024 1 [facility] (MEDICAID HMO) [id number] Wayne Smith [id number] Wayne Smith 10/16/2024 1 [facility] (MEDICAID HMO) [id number] Wayne Smith [id number] Wayne Smith 10/16/2024 1 [facility] (MEDICAID HMO) [id number] Wayne Smith [id number] Wayne Smith Notes Date Note Type Note Provider Name and Address Organization Details Recorded Time 08/18/2024 text/html this patient is a 30-year-old female who presents for amenorrhea. She is a positive test. Ultrasound revealed a 1st trimester gestation. Patient has no complaints. We talked about early care. Talked about genetic screening. We talked about her ultrasound results. We talked about the 12 week ultrasound that has genetic screening components. She was given recommendations on exercise, diet, [id number] medications. We reviewed her obstetric history. We reviewed her medical history. We reviewed her social history. She will begin routine care at her next visit. Paulo Mcmanus MD [address], [place], [address], [facility] 08/18/2024 17:09:30 OBGyn Episode Ob Episode Information Episode Created Date Number of Fetuses Patient Bloodtype Patient rh Status Prepregnancy Weight lbs Domestic Partner Domestic Partner Phone Father Name Sanitation Laborer Status 03/22/20 20 1 CLOSED Fetus Data First Name Last Name Admitted to NICU Weight (g) Sex Living Outcome Pediatric Complications Fetus ID Race Codes Race Delivery Type , Induced 4478 Enoch Calculation Initial Enoch Date Initial Exam Date Initial Exam Provider Initial Ultrasound Date Last Menstrual Period Date Ultra Sound Weeks Gestation 0 Eighteen To Twenty Week Enoch Update Ultra Sound Date Fundal Height At Umbil Quickening Date Ultra Sound Latest Weeks Gestation Final Enoch Confirmed By Final Enoch Confirmed Date Final Enoch Date Ultra Sound Latest Days Gestation 0 0 Menstrual History Last Menstrual Date Menses Monthly On Bcp Conception Prior Menses Frequency Hcg Plus Date Menarche Onset Age Delivery Information Delivery Date Delivery Type Labor Anesthesia Weeks Gestation Incision Type Labor Labor Length Hrs Delivered By Post Complications Tubal Sterilization Discharge Date Comments 7 2016 induced Discharge Information Feeding Method Contraceptive Method Maternal HG B and HCT Levels Ob Episode Information Episode Created Date Number of Fetuses Patient Bloodtype Patient rh Status Prepregnancy Weight lbs Domestic Partner Domestic Partner Phone Father Name Sanitation Laborer Status 03/22/20 20 1 CLOSED Fetus Data First Name Last Name Admitted to NICU Weight (g) Sex Living Outcome Pediatric Complications Fetus ID Race Codes Race Delivery Type 3146.56 7704 F Full Term 4479 Vaginal Delivery Enoch Calculation Initial Enoch Date Initial Exam Date Initial Exam Provider Initial Ultrasound Date Last Menstrual Period Date Ultra Sound Weeks Gestation 0 Eighteen To Twenty Week Enoch Update Ultra Sound Date Fundal Height At Umbil Quickening Date Ultra Sound Latest Weeks Gestation Final Enoch Confirmed By Final Enoch Confirmed Date Final Enoch Date Ultra Sound Latest Days Gestation 0 0 Menstrual History Last Menstrual Date Menses Monthly On Bcp Conception Prior Menses Frequency Hcg Plus Date Menarche Onset Age Delivery Information Delivery Date Delivery Type Labor Anesthesia Weeks Gestation Incision Type Labor Labor Length Hrs Delivered By Post Complications Tubal Sterilization Discharge Date Comments 1 38 postive chlamdia Discharge Information Feeding Method Contraceptive Method Maternal HG B and HCT Levels Ob Episode Information Episode Created Date Number of Fetuses Patient Bloodtype Patient rh Status Prepregnancy Weight lbs Domestic Partner Domestic Partner Phone Father Name Sanitation Laborer Status 03/22/20 20 1 CLOSED Fetus Data First Name Last Name Admitted to NICU Weight (g) Sex Living Outcome Pediatric Complications Fetus ID Race Codes Race Delivery Type , Induced 4477 Enoch Calculation Initial Enoch Date Initial Exam Date Initial Exam Provider Initial Ultrasound Date Last Menstrual Period Date Ultra Sound Weeks Gestation 0 Eighteen To Twenty Week Enoch Update Ultra Sound Date Fundal Height At Umbil Quickening Date Ultra Sound Latest Weeks Gestation Final Enoch Confirmed By Final Enoch Confirmed Date Final Enoch Date Ultra Sound Latest Days Gestation 0 0 Menstrual History Last Menstrual Date Menses Monthly On Bcp Conception Prior Menses Frequency Hcg Plus Date Menarche Onset Age Delivery Information Delivery Date Delivery Type Labor Anesthesia Weeks Gestation Incision Type Labor Labor Length Hrs Delivered By Post Complications Tubal Sterilization Discharge Date Comments 6 2016 induced Discharge Information Feeding Method Contraceptive Method Maternal HG B and HCT Levels Ob Episode Information Episode Created Date Number of Fetuses Patient Bloodtype Patient rh Status Prepregnancy Weight lbs Domestic Partner Domestic Partner Phone Father Name Sanitation Laborer Status 04/05/20 20 1 CLOSED Fetus Data First Name Last Name Admitted to NICU Weight (g) Sex Living Outcome Pediatric Complications Fetus ID Race Codes Race Delivery Type , Spontane ous 4850 Enoch Calculation Initial Enoch Date Initial Exam Date Initial Exam Provider Initial Ultrasound Date Last Menstrual Period Date Ultra Sound Weeks Gestation 0 Eighteen To Twenty Week Enoch Update Ultra Sound Date Fundal Height At Umbil Quickening Date Ultra Sound Latest Weeks Gestation Final Enoch Confirmed By Final Enoch Confirmed Date Final Enoch Date Ultra Sound Latest Days Gestation 0 0 Menstrual History Last Menstrual Date Menses Monthly On Bcp Conception Prior Menses Frequency Hcg Plus Date Menarche Onset Age Delivery Information Delivery Date Delivery Type Labor Anesthesia Weeks Gestation Incision Type Labor Labor Length Hrs Delivered By Post Complications Tubal Sterilization Discharge Date Comments 0 Discharge Information Feeding Method Contraceptive Method Maternal HG B and HCT Levels Ob Episode Information Episode Created Date Number of Fetuses Patient Bloodtype Patient rh Status Prepregnancy Weight lbs Domestic Partner Domestic Partner Phone Father Name Sanitation Laborer Status 04/05/20 20 1 O Positive 112 CLOSED Fetus Data First Name Last Name Admitted to NICU Weight (g) Sex Living Outcome Pediatric Complications Fetus ID Race Codes Race Delivery Type 4167.37 65 M true Full Term Meconium at delivery 4851 Problems Problem Notes declined CF/SMA Problem Name Start Date End Date Resolution Snomed Code Not e Fibromyalgia [id number] Tramado l History of abnormal cervical Papanicolaou smear [id number] Colpo 0 Ear lesion [id number] ENT referral Enoch Calculation Initial Enoch Date Initial Exam Date Initial Exam Provider Initial Ultrasound Date Last Menstrual Period Date Ultra Sound Weeks Gestation 10/24/2020 04/05/2020 03/19/2020 01/18/2020 9 Eighteen To Twenty Week Enoch Update Ultra Sound Date Fundal Height At Umbil Quickening Date Ultra Sound Latest Weeks Gestation Final Enoch Confirmed By Final Enoch Confirmed Date Final Enoch Date Ultra Sound Latest Days Gestation 0 [email or web address] 04/05/2020 10/25/19 21 0 Pre- Flowsheet Flowsheet Date 03/19/2020 Cabrera Score Blood Edema Fundus Height Fundus Units Glucose Ketones Leukocytes Nitrite Labor Signs Protein Cervic Dilation Cervic Effacement Cervic Station Type Weight in lbs Pre/Post Dialysis Refused BP Diastolic BP Location Tested BP Systolic BP Type Fetus Heart Rate Present Fetus Movement Comments Flowsheet Date 04/05/2020 Cabrera Score Blood Edema Fundus Height Fundus Units Glucose Ketones Leukocytes Nitrite Labor Signs Protein Cervic Dilation Cervic Effacement Cervic Station 12 Type Weight in lbs Pre/Post Dialysis Refused Weight 116.43502846339 BP Diastolic BP Location Tested BP Systolic BP Type 77 R arm 111 sitting Fetus Heart Rate Present A 145 Fetus Movement Comments this patient is a 29-year-ol d multiparous female 11 weeks gestation who presents for initial visit. She has fibromyalgia and takes tramadol. We talked about tramadol use in a strategy for using it without affect on the child. Talked about a possible transition to Suboxone. she is going to consider that. She has abnormal Pap smear and is to have colpo in a few days. Flowsheet Date 04/09/2020 Cabrera Score Blood Edema Fundus Height Fundus Units Glucose Ketones Leukocytes Nitrite Labor Signs Protein Cervic Dilation Cervic Effacement Cervic Station Type Weight in lbs Pre/Post Dialysis Refused Weight 116.70644142378 BP Diastolic BP Location Tested BP Systolic BP Type 78 109 Fetus Heart Rate Present Fetus Movement Comments Flowsheet Date 05/10/2020 Cabrera Score Blood Edema Fundus Height Fundus Units Glucose Ketones Leukocytes Nitrite Labor Signs Protein Cervic Dilation Cervic Effacement Cervic Station Type Weight in lbs Pre/Post Dialysis Refused BP Diastolic BP Location Tested BP Systolic BP Type Fetus Heart Rate Present Fetus Movement Comments Flowsheet Date 05/10/2020 Cabrera Score Blood Edema Fundus Height Fundus Units Glucose Ketones Leukocytes Nitrite Labor Signs Protein Cervic Dilation Cervic Effacement Cervic Station trace Type Weight in lbs Pre/Post Dialysis Refused Weight 121.559583686822 BP Diastolic BP Location Tested BP Systolic BP Type 71 L arm 111 sitting Fetus Heart Rate Present Fetus Movement A Yes Comments Pt doing well. Gender u/s to day. To have reveal soon. Encouraged flu shot. Flowsheet Date 06/01/2020 Cabrera Score Blood Edema Fundus Height Fundus Units Glucose Ketones Leukocytes Nitrite Labor Signs Protein Cervic Dilation Cervic Effacement Cervic Station Type Weight in lbs Pre/Post Dialysis Refused BP Diastolic BP Location Tested BP Systolic BP Type Fetus Heart Rate Present Fetus Movement Comments Flowsheet Date 06/01/2020 Cabrera Score Blood Edema Fundus Height Fundus Units Glucose Ketones Leukocytes Nitrite Labor Signs Protein Cervic Dilation Cervic Effacement Cervic Station 20 Type Weight in lbs Pre/Post Dialysis Refused Weight 127.339313495683 BP Diastolic BP Location Tested BP Systolic BP Type 63 R arm 99 sitting Fetus Heart Rate Present A 145 Fetus Movement A Yes Comments patient reports draining fro m scaly lesions inside the ear canal. There is odor at times to this drainage. This was previously diagnosed as psoriasis has become worse during the . It appears to have become infected periodically. There are episodes of cyst formation that rupture. At this time there appears to be no infection. There is some scale Flowsheet Date 06/29/2020 Cabrera Score Blood Edema Fundus Height Fundus Units Glucose Ketones Leukocytes Nitrite Labor Signs Protein Cervic Dilation Cervic Effacement Cervic Station Type Weight in lbs Pre/Post Dialysis Refused BP Diastolic BP Location Tested BP Systolic BP Type Fetus Heart Rate Present Fetus Movement Comments Flowsheet Date 06/29/2020 Cabrera Score Blood Edema Fundus Height Fundus Units Glucose Ketones Leukocytes Nitrite Labor Signs Protein Cervic Dilation Cervic Effacement Cervic Station neg none 25 trace Type Weight in lbs Pre/Post Dialysis Refused Weight 132.451250781856 BP Diastolic BP Location Tested BP Systolic BP Type 75 120 Fetus Heart Rate Present A 155 Fetus Movement A Yes Comments Doing well. Anatomy US today now complete and wnl. 88% growth, will monitor size. Encouraged flu shot- will get. Will discuss Tdap next visit. Did see ENT- gave abx oint, outside ear cleared up but now scaling inside ear canal- will call them with update. GCT next visit. RH pos. Flowsheet Date 07/29/2020 Cabrera Score Blood Edema Fundus Height Fundus Units Glucose Ketones Leukocytes Nitrite Labor Signs Protein Cervic Dilation Cervic Effacement Cervic Station 27 trace Type Weight in lbs Pre/Post Dialysis Refused Weight 136.239236817498 BP Diastolic BP Location Tested BP Systolic BP Type 80 L arm 107 sitting Fetus Heart Rate Present A 144 Fetus Movement A Yes Comments acid reflux, to take Prilose c Flowsheet Date 08/12/2020 Cabrera Score Blood Edema Fundus Height Fundus Units Glucose Ketones Leukocytes Nitrite Labor Signs Protein Cervic Dilation Cervic Effacement Cervic Station 30 trace Type Weight in lbs Pre/Post Dialysis Refused Weight 141.139844818689 BP Diastolic BP Location Tested BP Systolic BP Type 61 R arm 115 sitting Fetus Heart Rate Present A 145 Fetus Movement A Yes Comments Flowsheet Date 08/26/2020 Cabrera Score Blood Edema Fundus Height Fundus Units Glucose Ketones Leukocytes Nitrite Labor Signs Protein Cervic Dilation Cervic Effacement Cervic Station 31 Type Weight in lbs Pre/Post Dialysis Refused Weight 139.066257472323 BP Diastolic BP Location Tested BP Systolic BP Type 71 R arm 126 sitting Fetus Heart Rate Present A 145 Fetus Movement A Yes Comments patient complains of lower b ack pain and some sciatica. She also has some upper back pain. We talked about 10s units. Was also instructed to use Tylenol, heat and rest. Flowsheet Date 09/09/2020 Cabrera Score Blood Edema Fundus Height Fundus Units Glucose Ketones Leukocytes Nitrite Labor Signs Protein Cervic Dilation Cervic Effacement Cervic Station none 33 neg Type Weight in lbs Pre/Post Dialysis Refused Weight 142.477975105787 BP Diastolic BP Location Tested BP Systolic BP Type 76 R arm 126 sitting Fetus Heart Rate Present A 138 Fetus Movement A Yes Comments Doing well. Encouraged TDAP. Pre admit scheduled. Sciatica improved. Flowsheet Date 09/23/2020 Cabrera Score Blood Edema Fundus Height Fundus Units Glucose Ketones Leukocytes Nitrite Labor Signs Protein Cervic Dilation Cervic Effacement Cervic Station 36 3cm 60% -3 Type Weight in lbs Pre/Post Dialysis Refused Weight 148.712291965907 BP Diastolic BP Location Tested BP Systolic BP Type 71 R arm 110 sitting Fetus Heart Rate Present A 145 Fetus Movement A Yes Comments GBS done, patient up for 39 week elective induction. Wants membranes stripped 38 weeks. Flowsheet Date 09/30/2020 Cabrera Score Blood Edema Fundus Height Fundus Units Glucose Ketones Leukocytes Nitrite Labor Signs Protein Cervic Dilation Cervic Effacement Cervic Station none 37 trace Type Weight in lbs Pre/Post Dialysis Refused Weight 144.247219503761 BP Diastolic BP Location Tested BP Systolic BP Type 68 102 Fetus Heart Rate Present A 127 Fetus Movement A Yes Comments No contractions. Doing well. Pre admit done. Flowsheet Date 10/07/2020 Cabrera Score Blood Edema Fundus Height Fundus Units Glucose Ketones Leukocytes Nitrite Labor Signs Protein Cervic Dilation Cervic Effacement Cervic Station trace 37 trace 3cm 60% -2 Type Weight in lbs Pre/Post Dialysis Refused Weight 147.992012609062 BP Diastolic BP Location Tested BP Systolic BP Type 82 126 Fetus Heart Rate Present A 152 Fetus Movement A Yes Comments Occasional contractions. Lab or precautions. Menstrual History Last Menstrual Date Menses Monthly On Bcp Conception Prior Menses Frequency Hcg Plus Date Menarche Onset Age 0701/18/2020 Genetic Screening And Infection History Question Response Note Mental Retardation/Autism false Patient's Age Will Be 35 Yea rs Or Older At Estimated Date of Delivery false Thalassemia (Irish, Mongolian, Mediterranean, Or Background): MCV < 80 false Neural Tube Defect (Meningomyelocele, Spina Bifi da, Or Anencephaly) false Congenital Heart Defect false Down Syndrome false Arden-Sachs (eg, Adventist, Cajun, Arabic-Sierra Leonean) f alse Sherine Disease false Sickle Cell Disease Or Trait () false Hemophilia Or Other Blood Disorders false Muscular Dystrophy false Cystic Fibrosis false Kleberg's Chorea false Intellectual Disability/Autism false If Yes, Was Person Tested For Fragile X? false Other Inherited Genetic Or Chromosomal Disorder false Maternal Metabolic Disorder (eg, Type 1 Diabetes , PKU) false Patient Or Baby's Father Had A Child With Defects Not Listed Above false Recurrent Loss, Or A Stillbirth false Medications (including Suppl ements, Vitamins, Herbs, OTC Drugs), Illicit/Recreational Drugs, Alcohol false If Yes, Agent(s) And Strength/Dosage false Any Other Genetic History false Live With Someone With TB Or Exposed To TB false Patient Or Partner Has History Of Genital Herpes false Rash Or Viral Illness Since Last Menstrual Perio d false History Of STD, Gonorrhea, Chlamydia, HPV, Syphi lis false Other Infection History false History of HIV true Abn. Pap History of Hepatitis false Prior GBS-infected child false Hemoglobinopathy Or Carrier false Other Structural Defect false Recent Travel History Outside of Country false Delivery Information Delivery Date Delivery Type Labor Anesthesia Weeks Gestation Incision Type Labor Labor Length Hrs Delivered By Post Complications Tubal Sterilization Discharge Date Comments 1 Sponta neous [facility]-Ep id[facility] 38.3 false Emily Azevedo MD Rupture of membranes Discharge Information Feeding Method Contraceptive Method Maternal HG B and HCT Levels Ob Episode Information Episode Created Date Number of Fetuses Patient Bloodtype Patient rh Status Prepregnancy Weight lbs Domestic Partner Domestic Partner Phone Father Name Sanitation Laborer Status 09/16/19 25 1 O Positive 120 Cristobal OPEN Fetus Data First Name Last Name Admitted to NICU Weight (g) Sex Living Outcome Pediatric Complications Fetus ID Race Codes Race Delivery Type 06406 Enoch Calculation Initial Enoch Date Initial Exam Date Initial Exam Provider Initial Ultrasound Date Last Menstrual Period Date Ultra Sound Weeks Gestation 09/15/2024 08/18/2024 05/22/2024 13 Eighteen To Twenty Week Enoch Update Ultra Sound Date Fundal Height At Umbil Quickening Date Ultra Sound Latest Weeks Gestation Final Enoch Confirmed By Final Enoch Confirmed Date Final Enoch Date Ultra Sound Latest Days Gestation 10/17/19 25 21 [email or web address] 09/15/2024 02/23/20 25 5 Pre-isiah Flowsheet Flowsheet Date 09/15/2024 Cabrera Score Blood Edema Fundus Height Fundus Units Glucose Ketones Leukocytes Nitrite Labor Signs Protein Cervic Dilation Cervic Effacement Cervic Station 18 cm Type Weight in lbs Pre/Post Dialysis Refused Weight 125.506016239763 BP Diastolic BP Location Tested BP Systolic BP Type 83 L arm 118 sitting Fetus Heart Rate Present A 154 Fetus Movement A No Comments this patient is a 34-year-ol d mutliparous female at 17 weeks' gestation who presents for initial care. She has a history of term vaginal births. Her medical, surgical, obstetric history is unremarkable. She is vaccinated. She was given precautions recommendations for . We talked about vaccines in . Talked about care in detail. She is having genetic testing. She had a normal 12 week ultrasound. To begin routine care. Flowsheet Date 10/16/2024 Cabrera Score Blood Edema Fundus Height Fundus Units Glucose Ketones Leukocytes Nitrite Labor Signs Protein Cervic Dilation Cervic Effacement Cervic Station Type Weight in lbs Pre/Post Dialysis Refused BP Diastolic BP Location Tested BP Systolic BP Type Fetus Heart Rate Present Fetus Movement Comments Flowsheet Date 10/16/2024 Cabrera Score Blood Edema Fundus Height Fundus Units Glucose Ketones Leukocytes Nitrite Labor Signs Protein Cervic Dilation Cervic Effacement Cervic Station Type Weight in lbs Pre/Post Dialysis Refused Weight 128.677982712998 BP Diastolic BP Location Tested BP Systolic BP Type 69 L arm 107 sitting Fetus Heart Rate Present A 137 Fetus Movement A Yes Comments no complaints, no problems, routine care, no contractions, no vaginal bleeding, no loss of fluid, no crampingnormal anatomy scan Menstrual History Last Menstrual Date Menses Monthly On Bcp Conception Prior Menses Frequency Hcg Plus Date Menarche Onset Age 1105/22/2024 true 28 Delivery Information Delivery Date Delivery Type Labor Anesthesia Weeks Gestation Incision Type Labor Labor Length Hrs Delivered By Post Complications Tubal Sterilization Discharge Date Comments Discharge Information Feeding Method Contraceptive Method Maternal HG B and HCT Levels
--- OUTSIDE RECORDS SUMMARY | 2024-11-12 16:43 | XMS_ITS | Clinical Summary ---
Author Organization [facility] Address [address] Attn: Epic Prelude ADT JASPREET LAGUERRE CARRILLO [address] Care Team Providers Care Glove Wrapper Name Role Phone Unavailable Primary Care Provider Unavailabl e Social History Tobacco Use Types Packs/Day Years Used Date Smoking Tobacco: Never Assessed Comments Unknown Sex and Gender Information Value Date Recorded Sex Assigned at Not on file Legal Sex Female 5:03 PM CDT Gender Identity Not on file Sexual Orientation Not on file Plan of Treatment Health Maintenance Due Date Last Done Comments DTAP/TDAP/TD VACCINES (1 - Tdap) 2009 HEPATITIS B VACCINES (1 of 3 - 19+ 3-dose series) 2009 HPV/Cotest (21-29) 2011 CERVICAL CANCER SCREENING 2020 HPV/Cotest (30-65) 2020 PAP SMEAR 2020 INFLUENZA VACCINE (#1) 2024 HPV VACCINES Aged Out No longer eligi ble based on patient's age to complete this topic
== END 2024-11-12 16:40 | disposition home or self-care (01) ==
PROVIDERS: PCP Internal Medicine; Visit Provider Internal Medicine
DX: E01.0 Iodine-deficiency related diffuse (endemic) goiter (principal)
CPT/HCPCS: 76536